=== PATIENT | male | born 1950 | race Caucasian/White ===

== ENCOUNTER → 2021-06-02 | Outpatient (CLI) | payer MEDICARE ==
--- NOTE | 2021-06-03 10:33 | MR ---
EXAMINATION TYPE: MR lumbar spine wo con DATE OF EXAM: 06/02/2021 COMPARISON: NONE HISTORY: Lower back pain x 10 years. TECHNIQUE: Multiplanar, multisequence imaging of the lumbar spine is performed without IV contrast. FINDINGS: Sagittal images of the lumbar spine show vertebral body heights to appear satisfactory. Ali gnment is straightened. Multilevel disc desiccation. Slight grade 1 retrolisthesis L4 on L5. Moderate disc space narrowing with heterogeneous Modic type III endplate changes L4-L5 level and mild to mode rate spurring . Mild disc space narrowing posteriorly L5-S1 level. The conus medullaris is normal in position and signal ending mid L1 level. There is hemangioma involving the posterior left L2 vertebr a sagittal image 6. Axial images show T12-L1, L1-L2, L2-L3, and L3-L4 levels all to appear within normal limits. Axial images at L4-L5 level shows mild to moderate facet degenerative changes. There is broad-based r ight paracentral disc protrusion effacing the lateral recess and anterolateral thecal sac, there is m oderate to severe bilateral neural foraminal narrowing as there is additional broad-based disc bulge. There is effacement on the exiting left L4 nerve sagittal images 4 and 5 and encroachment along the anterior inferior aspect of the right L4 nerve sagittal image 15. Axial images at the L5-S1 levels show mild to moderate facet arthropathy bilaterally. Tiny central di sc protrusion but spinal canal is preserved. Patent bilateral neural foramina. Paraspinal muscle bulk is maintained. There are a few small round T2 hyperintense lesions felt to ref lect benign simple cysts right greater than left noted. IMPRESSION: Straightening of the lumbar spine with degenerative changes lower lumbar levels. Most pro minent findings are noted at L4-L5 level as detailed above.
== END | disposition home or self-care (01) ==
LOC: RADMRIMAIN 20:27
PROVIDERS: ATTEND Orthopaedic Surgery
DX: M51.36 Other intervertebral disc degeneration, lumbar region (principal)
CPT/HCPCS: 72148

== ENCOUNTER 2021-06-11 11:11 | Inpatient (IN) | payer MEDICARE ==
[2021-06-08 15:48] VITALS: BMI 26.2
--- NOTE | 2021-06-11 08:09 | P.HPOR ---
History of Present Illness H&P Date: 06/04/21 Chief Complaint: Low back pain, LE weakness Date of :50 R14 Age: 71 year Height: 5'11" Weight: 185 lbs BMI: 25.80 kg/m2 Occupation: Retired VAS: 6 CHIEF COMPLAINT: Low back pain HISTORY: Xrays No ew xrays taken in office Trauma or injury No Work-Related No Pain description Sharp, increasing Location Medial posterior Activity Modification yes , unable to stand, lay, or ambulate for extended periods of time. Hand Dominance right DOI: Chronic, no injury or trauma. DOS: None. TREATMENTS COMPLETED: 6 weeks of PT completed? Yes How many sessions? 9 Did it help? No Physician directed home exercise completed? No Medications yes List: Gabapentin without relief of his symptoms. Alternative interventions Chiropractic?: No Brace: No Injections Yes (lumbar ARMANDO) How many? 3 Did they help? yes, found short/temporary relief with his symptoms. RFA: No SUBJECTIVE: Patient presents for a pre-operative appointment to review the procedure and address and questions Mr. Chan might have. Since the time of the last appointment he notes that his symptoms have not improved, noting that he is ready and willing to proceed with the planned procedure. Patient alanis any bladder or bowel issues, no perineal numbness and tingling, and presents to the office without the use of any aides. HPI: Mr. Chan last presented to the office on 05/24/2021 for an evaluation of his low back. To review, the patient notes that his low back pain has been ongoing for 8 years with no known injury or trauma to indicate an onset of the pain. Over this time his symptoms have gradually worsened with severity. Due to this, he has seen his PCP (previously Dr. Albert) regarding this issue who then referred him to Dr. Mckeon for further treatment. While with Dr. Mckeon the patient did have three lumbar ARMANDO injections which he found short/temporary relief of his symptoms. Along with this he did complete 9 physical therapy visits with no relief of his symptoms. Regarding his symptoms he notes acute midline lumbar spine, states radicular symptoms. This pain is quite severe and increases with standing, laying, and ambulating for extended in both legs for a periods of time. Due to this his daily functionality is quite limited and he notes that his quality of life has deteriorated substantially. Patient does also report being a fall risk and has fallen several times, associating these falls with his chronic back pain. He feels that he has failed with the conservative treatments tried thus far. Otherwise the patient denies any bladder or bowel issues, no perineal numbness/tingling, and presents without the use of any ambulatory aides. The patients' past social, medical, family, surgical history, as well as review of systems, have been reviewed. Please refer to the Neurosurgery History and Physical form that has been scanned in to our electronic medical record system. Review of Systems 14 points review of systems completed and as stated in HPI, all other systems reviewed are negative. Past Medical History Past Medical History: Cancer, GERD/Reflux, Hypertension, Musculoskeletal Disorder, Osteoarthritis (OA), Prostate Disorder Additional Past Medical History / Comment(s): skin cancer, kidney stones History of Any Multi-Drug Resistant Organisms: None Reported Past Surgical History: Cholecystectomy, Orthopedic Surgery Additional Past Surgical History / Comment(s): ORIF right wrist, hemorrhoidectomy, [place]. cataracts removed Past Anesthesia/Blood Transfusion Reactions: Motion Sickness, Postoperative Nausea & Vomiting (PONV) Additional Past Anesthesia/Blood Transfusion Reaction / Comment(s): severe PONV, had trouble urinating after one of his surgeries Smoking Status: Former smoker - Past Family History Mother Family Medical History: No Reported History Sister(s) Family Medical History: Deep Vein Thrombosis (DVT) Medications and Allergies Home Medications Medication Instructions Recorded Confirmed Type Cefuroxime [Ceftin] 250 mg PO BID PRN 06/08/21 06/08/21 History Cholecalciferol [Vitamin D3 (25 25 mcg PO DAILY 06/08/21 06/08/21 History Mcg = 1000 Iu)] DULoxetine HCL [Cymbalta] 60 mg PO BID 06/08/21 06/08/21 History Finasteride [Proscar] 5 mg PO DAILY 06/08/21 06/08/21 History Gabapentin [Neurontin] 300 mg PO TID 06/08/21 06/08/21 History LORazepam [Ativan] 1 mg PO BID 06/08/21 06/08/21 History LORazepam [Ativan] 2 mg PO HS 06/08/21 06/08/21 History Loratadine [Claritin] 10 mg PO DAILY 06/08/21 06/08/21 History [place]-3/Dha/Epa/Fish Oil [Fish Oil 1 each PO DAILY 06/08/21 06/08/21 History 1,000 mg Softgel] Omeprazole [PriLOSEC] 40 mg PO DAILY 06/08/21 06/08/21 History Psyllium Husk (with Sugar) 4 gm PO DAILY 06/08/21 06/08/21 History [Metamucil Fiber Thin] Tamsulosin [Flomax] 0.4 mg PO DAILY 06/08/21 06/08/21 History amLODIPine BESYLATE 10 mg PO DAILY 06/08/21 06/08/21 History lamoTRIgine [LaMICtal] 150 mg PO DAILY 06/08/21 06/08/21 History lisinopriL [Zestril] 20 mg PO DAILY 06/08/21 06/08/21 History Allergies Allergy/AdvReac Type Severity Reaction Status Date / Time erythromycin base Allergy Nausea & Verified 06/08/21 15:06 Vomiting Physical Examination Osteopathic Statement: *. No significant issues noted on an osteopathic structural exam other than those noted in the History and Physical/Consult. General: Awake, alert, appropriate for age, in no acute distress. HEENT: No unusual neck masses around region of lateral neck triangle, thyroid, supraclavicular groove Heart: Regular rate and rhythm, normal S1, S2 and no murmur/gallop. Lungs: Clear to auscultation bilaterally with no use of accessory muscles. Extremities: Skin warm and dry without acute lesions, coloration, temperature, skin intact, no tenderness or erythema Integument: Hairy patches: Absent Dorsal skin dimples: Absent Cafe au lait spots: Absent Surgical incisions: No Palpation: Please see Pain drawing on Intake sheet for further detail. Midline spinal tenderness: No E6 Paralumbar tenderness: Yes E6 Parathoracic tenderness: No E6 Buttocks tenderness: No E6 Special findings: No POSTURAL and MUSCULO-SKELETAL EVALUATION: Coronal Balance: NEUTRAL Recumbent testing: Patient is able to lay flat on back Sagittal Balance: NEUTRAL Shoulder Profile: LEVEL Pelvic Girdle: LEVEL Neck ROM: UNRESTRICTED Lumbar ROM: RESTRICTED Shoulder ROM: Symmetrical Hip ROM: Symmetrical Knee ROM: Symmetrical Hands: Normal appearance, symmetrical Feet: Normal appearance, Symmetrical VASCULAR STATUS : LEFT RIGHT Wrist Pulses INTACT INTACT Pedal Pulses (Dors. pedis & post.tibialis) INTACT INTACT Color NORMAL NORMAL Edema Absent Absent NEUROLOGIC EXAMINATION: Mental Status:Awake and alert, fully oriented, with normal attention, concentration and memory, and fluent, appropriate speech. Cranial Nerves: I: Olfactory not tested. II: Visual acuity normal, no visual field deficit noted with confrontation. III,IV: Normal pupillary reflexes & intact extraocular movements without nystagmus. V,: Intact symmetrical facial sensation. VII: Intact symmetrical facial motor movement VIII: Hearing intact. IX,X: Intact gag, swallow, & normal voice. XI: Sternocleidomastoid, trapezius function intact. XII: Tongue midline with normal movements. L'hermitte's Sign: Negative / absent Spurling'Sign: Absent bilaterally. Cubital percussion test: Absent bilaterally. Gaby-Tinel sign - Carpal region: Absent bilaterally. Straight Leg Raising: Absent bilaterally. Crossed straight leg raise: negative O8 MOTOR EXAM (0-5/5, N/T) STRENGTH RIGHT LEFT Shoulder Abd (not part of the VAUGHN score) 5 5 Elbow Flexors 5 5 Elbow Extensor 5 5 Wrist Dorsiflexors 5 5 Finger Abductor 5 5 Form Presser 5 5 Hip Flexor (Not part of VAUGHN Motor score) 5 5 Knee Flexor 5 5 Knee Extensor 5 5 Ankle dorsiflexor 4+ 4+ Ankle plantarflexion 4+ 4+ Extensor hallucis 5 5 REFLEXES(0-4/2, NT) RIGHT LEFT Upper Extremities 2 2 Lower Extremities 2 1 Pathological Reflexes RIGHT LEFT Anand's Absent Absent Clonus Absent Absent Babinski Absent Absent # Indicates mechanical impairment Muscle appearance: Symmetrical, without signs of atrophy or dystrophy. Sensory system (0-4, N/T) Test type RU DEEP RL LL Joint-Position 2 2 2 2 Vibration 2 2 2 2 Pain & LT sense 2 2 2 2 Dermatomal Deficit: None None L5 L5-S1 Gait and Functional Evaluation: Ambulatory aids: Independent Romberg's test: Intact bilaterally Toe heel walk / heel-toe walk intact while maintaining satisfactory balance? yes Squatting/straightening w/o assistance to a min of 60 degree knee flexion? yes Single leg stance: intact Trendelenburg sign negative bilaterally Hand and finger dexterity intact bilaterally? yes Disdiadochokinesis examination negative bilaterally? yes Results - This demonstrates L4-5 severe spondylosis with disc space collapse Modic endplate changes bilateral foraminal stenosis facet arthropathy severe causing foraminal stenosis with facet overgrowth. Lateral osteophytes noted both L4 5 and L5-S1. No fractures or dislocations noted. There is flattening of the normal lumbar lordosis through L4-L5 secondary to disc collapse. There are no lesions fractures or dislocations otherwise noted AP pelvis demonstrate congruent level pelvis no fracture MRI reflects this as well with severe spondylosis, modic edplate changes at L4-5 with b/l foraminal stenosis, mild central stenosis and facet ovwergrowth and bogginess. There is disc collapse, segmental kyphosis due to collapse and arthritic changes. Assessment and Plan Assessment: 1. L4-L5 spondylosis 2.L4-L5 bilateral foraminal stenosis 3. L4-L5 central stenosis 4. L5-S1 disc bulge Plan: 1. Based on his clinical findings, imaging, and failure to improve with conservative treatment we did discuss operative intervention to alleviate his ongoing symptoms. This would come in the form of a L4-L5 MIS TLIF. All risks and benefits of the procedure were discussed and the patient expressed understanding. Additionally all questions and concerns were answered and the patient expressed understanding. He would like to proceed with scheduling the surgery. 2. Ordered a CT scan without contrast of the lumbar spine for surgical planning. 3. Given a script for a LSO brace to wear post-operatively. Spine Surgery Risk Review Juan Chan is a 71 y/o white male presenting for evaluation of low back pain. It was my pleasure to have seen and examined Mr. Chan. In our visit today we have had a chance to go over subjective complaints, physical examination findings and treatments including the natural course history without intervention and various interventional options. The patients imaging demonstrates L4-5 severe spondylosis with disc space collapse Modic endplate changes bilateral foraminal stenosis facet arthropathy severe causing foraminal stenosis with facet overgrowth. Lateral osteophytes noted both L4 5 and L5-S1. No fractures or dislocations noted. There is flattening of the normal lumbar lordosis through L4-L5 secondary to disc collapse. There are no lesions fractures or dislocations otherwise noted. On physical exam, Mr. Chan demonstrates bilateral lower extremity weakness, radiculopathy, and neurogenic claudication. I have explained to the patient that as their condition progresses it will cause further neurological deficits and eventual paralysis. Based on the patients imaging, physical exam, and the rapid progression and disabling nature of their symptoms, at this time I recommend surgery in the form or a: L4-L5 MIS TLIF. I discussed the risk and benefits of this procedure at length with Juan. The patient and his agreed to considered pursuing the procedure abovementioned. Prior to surgery, she should follow up with her PCP (Cardio, ID, IM etc) for clearance. Questions were invited and answered, and the patient wishes to proceed as outlined below. Currently, I am recommendin.L4-L5 MIS TLIF 2.Follow up with PCP for surgical clearance 3.Review of surgical risks and benefits as well as an educational packet on the proposed surgical procedure. Risks: All surgical procedures come with inherent risks, including those related to positioning, anesthesia, intraoperative findings, and postoperative complications. It is important to understand that surgery does not come with any guarantee of a successful outcome as complications and adverse events are always possible. The patient was given a handout in office today discussing the surgical procedure and risks associated with the intervention, both of which were discussed with the patient. These risks include but are not limited to the following: * Experiencing same, different or even worse symptoms in back, neck, arms, or legs compared to before surgery. Requiring further surgery or other forms of treatment presently or at some time in the future at same or other levels of the intended spine surgery. On an extreme but fortunately relatively rare basis severe complication such as blindness, stroke, heart attack, temporary and/or permanent nerve injury, paralysis, coma, or may occur, sometimes without known explanation. Surgical complications may include but are not limited to risk of infection, fluid accumulation in the surgical dissection site, including a seroma or hematoma, that requires additional surgery, wound drainage, bleeding, new numbness or weakness, vision changes/loss, spinal fluid leakage, non-healing and/or infected incision, headaches, difficulty or inability to swallow, hoarseness, hemopneumothorax, pneumothorax, impotence, retrograde ejaculation, vaginal dryness; injury to nerves, spinal cord, blood vessels, lymphatics or other vital organs (i.e., bowel injury, injury to the great vessels); heterotopic bone formation; complications related to the hardware such as screws, rods, cages including misplaced hardware, device failure, instrumentation at the wrong spine level, hardware fracture/breakage, or hardware loosening; vertebral failure of the spinal column above or below the newly placed hardware; retained surgical instrumentations or devices and the need for further surgery. * Medical risks of the planned spine surgery include but are not limited to generalized Infections to the whole body or local areas outside of the surgical site (sepsis), heart attack, bleeding, anaphylaxis, meningitis, seizure, epilepsy, hearing loss, burn moyer, laceration of the head or other areas of the body, bruising, hypersensitivity of the skin, bladder over distension; allergic reaction; shoulder injury related to positioning; fat, blood and air clots to other areas of the body like heart, lungs, brain; failure of internal organs such as lungs, kidneys, liver and excessive bleeding. If blood transfusions are necessary, note that transfusions may cause intolerance reactions such as anaphylaxis or other complex reactions. Despite best efforts, the results of spine surgery might not heal in terms of bone, soft tissues such as skin, fascia, ligaments, and joints. Additionally, in order to achieve best possible results, spine surgery may be carried out beyond the initially planned levels and involve decompression, fusion including insertion of hardware at levels other than the original intended area of surgical interest change some portions of the procedure in order to ensure the best possible outcomes. With spine surgery and spinal fusion, there are different off label uses of instrumentation (devices, implants and hardware) as well as biological substances (bone morphogenic proteins, demineralized bone matrix) as well as using extra bone from allograft sources (i.e. cadaver bone) or autograft (iliac crest bone, ribs, or the spine itself). The patient has been given information about these practices and their inherent risks and benefits. [facility] is an educational center that serves as a training facility for neurosurgical and orthopedic spine residents and fellows. Residents are physicians who are completing their surgical intensive training following medical school. They assist in the operating room with direct supervision of the attending surgeons. Winn are surgeons who have completed their training and eligible for board certification. They have opted for an elective year of more specialized training in their field. They assist in the operating room under the supervision of the attending surgeons. Physician assistants are medically trained surgical providers who function in the outpatient, inpatient, and operating room setting under the direct supervision of the attending surgeon. [facility] has multiple operating rooms with single and overlapping rooms running daily. They currently function under the required guidelines as produced by the [facility] Committee with regards to the overlapping rooms and will continue to comply with changes to this policy as they occur. The requirements include and are complied with as follows: (1) the critical portions of the overlapping rooms will not occur at the same time, (2) the attending physician will be physically present during the critical portions of the procedure and immediately available during the entire case, and (3) a back-up attending is designated should the primary attending not be immediately available. The patient has had a chance to review all the listed information, has been given print outs detailing this information, and has had all his/her questions answered to their satisfaction. It was my pleasure to have seen and examined [Patient Name]. In our visit today we have had a chance to go over my understanding of our patient's current condition, the natural course history without intervention and various interventional options. Questions were invited and answered, and the patient wishes to proceed as outlined above. I have seen and examined the patient for 25 minutes and we have spent more than 50% of the time in repeat and detailed counseling about the patient's condition, its natural course history with out and as much as can be predicted with surgery and re-review of various surgical treatment options. In conclusion, Mr. Chan and his requested we proceed with the above suggested surgery and are willing to accept risks and limitations of the suggested surgery as nature of the disease process and our best attempts at treatment for the condition. Thank you again for allowing us to be part of your patient's care. Please don't hesitate to contact me if you have any further questions. Signed and authenticated by: [employer] P:\\\\ppart\\\\Files\\\\[id number]\\[id number].PNG \\d [facility] [address], [address] [place] [address] Follow-up: post-op Patient Education (Informational booklet, instructions, etc) given at today's appointment: Yes .ED:Patient Education: Y Plan at next visit: Review post-operative progress
[~2021-06-11 11:11] MED LIST: ACETAMINOPHEN TAB 500 MG TAB PO PRN; MELOXICAM 7.5 MG TAB PO PRN; MIDAZOLAM 2 MG/2 ML VIAL IV PRN; ONDANSETRON 4 MG/2 ML VIAL IVP PRN; TRANEXAMIC ACID 1,000 MG in SODIUM CHLORIDE 0.9% 100 ML IVPB PRN
[2021-06-11] MEDS: LACTATED RINGERS 1,000 ML IV SCH (12:21)
[2021-06-11] MEDS ORDERED: MIDAZOLAM 2 MG/2 ML VIAL ONE (12:48)
[2021-06-11] MEDS ORDERED: KETAMINE 10 MG/ML 20 ML VIAL ONE (12:48)
[2021-06-11] MEDS ORDERED: SUCCINYLCHOLINE CHLORIDE 100 MG/5 ML SYR IV ONE (12:48)
[2021-06-11] MEDS ORDERED: .fentaNYL (PF) 50 MCG/ML 2 ML AMP ONE (12:48)
[2021-06-11] MEDS ORDERED: SODIUM CHLORIDE 0.9% 100 ML BAG ONE (12:48)
[2021-06-11] MEDS ORDERED: diphenhydrAMINE 50 MG/ML 1 ML VIAL ONE (12:48)
[2021-06-11] MEDS ORDERED: LIDOCAINE 1% INJ 10MG/ML (20 ML MDV) ONE (12:48)
[2021-06-11] MEDS ORDERED: DEXAMETHASONE SOD PHOSPHATE 4 MG/ML 1 ML VIAL ONE (12:48)
[2021-06-11] MEDS ORDERED: PHENYLEPHRINE-0.9% NACL SYG 1,000 MCG/10 ML SYRINGE ONE (12:48)
[2021-06-11] MEDS ORDERED: PROPOFOL 10 MG/ML 20 ML VIAL IV ONE (12:48)
[2021-06-11] MEDS ORDERED: TRANEXAMIC ACID 1,000 MG/10 ML VIAL ONE (12:48)
[2021-06-11] MEDS ORDERED: THROMBIN (BOVINE) 5,000 UNIT VIAL TOPICAL ONE (12:53)
[2021-06-11] MEDS ORDERED: GELATIN SPONGE,ABSORB (LARGE) 1 EACH SPONGE TOPICAL ONE (12:53)
[2021-06-11] MEDS ORDERED: BUPIVACAINE (PF) 0.25% 30 ML VIAL SQ ONE (12:53)
[2021-06-11] MEDS ORDERED: TRANEXAMIC ACID 1,000 MG in SODIUM CHLORIDE 0.9% 100 ML IVPB ONE (13:35)
[2021-06-11] MEDS ORDERED: ceFAZolin 1,000 MG in SODIUM CHLORIDE 0.9% 1,000 ML IRRIGATION ONE (13:57)
[2021-06-11] MEDS ORDERED: LACTATED RINGERS 1,000 ML IV ONE ×2 (14:57)
[2021-06-11] MEDS ORDERED: HYDROmorphone 0.5 MG/0.5 ML SYRINGE IVP PRN (16:32)
[2021-06-11] MEDS ORDERED: HYDROcodone/APAP 5-325MG 1 EACH TAB PO PRN (16:32)
[2021-06-11] MEDS ORDERED: CYCLOBENZAPRINE 5 MG TAB PO PRN (16:32)
[2021-06-11] MEDS ORDERED: SENNOSIDES-DOCUSATE SODIUM 1 EACH TAB PO PRN (16:32)
[2021-06-11] MEDS: HYDROmorphone 0.5 MG/0.5 ML SYRINGE IVP PRN ×4 (16:35→17:15)
--- NOTE | 2021-06-11 16:50 | FL ---
Fluoroscopy History: lumbar spondylosis Lumbar Spondylosis. 1 min 9 secs fl. 2 images saved
--- NOTE | 2021-06-11 17:30 | P.PN ---
Progress Note - Text Progress Note Date: 06/11/21 Brief Post Op: Surgeon: Yon Pre op dx; L4 5 spondylolisthesis with stenosis Post op dx: L4 5 spondylosis with stenosis Procedure: L4-L5 MIST LIF Anesthesia: GETA EBL: 50 Fluids: 1100 UO: 0 Dispo: Stable to PACU Post op Plan: Post operative noncontrasted CT scan Encourage ambulation IS 10x/hr Teds/SCDs Pain control No brace needed for ambulation
[2021-06-11] MEDS: HYDROcodone/APAP 10-325MG 1 EACH TAB PO PRN (19:51)
[2021-06-11] MEDS ORDERED: ONDANSETRON 4 MG in SODIUM CHLORIDE 0.9% 50 ML IVPB ONE (20:42)
[2021-06-11] MEDS ORDERED: ONDANSETRON 4 MG/2 ML VIAL IVP ONE (20:45)
[2021-06-11] MEDS: GABAPENTIN 300 MG CAP PO SCH (21:01)
[2021-06-11] MEDS: HYDROmorphone 1 MG/ML 1 ML SYRINGE IVP PRN (21:07)
[2021-06-11] MEDS ORDERED: TRIMETHOBENZAMIDE 100 MG/ML 2 ML VIAL IM STA (23:11)
--- NOTE | 2021-06-11 23:24 | CT ---
EXAMINATION TYPE: CT lumbar spine wo con DATE OF EXAM: 06/11/2021 COMPARISON: None HISTORY: h/o lumbar sx CT DLP: 1114.6 mGycm Automated exposure control for dose reduction was used. Images obtained from the level of T12-S3 vertebra with no contrast. Lumbar vertebra have normal alignment. There is posterior fusion surgery at L4-5. There is no mari meka fracture. There is disc prosthesis at L4-5. I see no focal bone destruction. There is no lumbar paraspinal mass. There are air bubbles in the soft tissues that appears extradural in the spinal rob l on the right side consistent with recent surgery. There are posterior skin claude. There are soft tissue subcutaneous air bubbles. Metal artifact obscures the spinal canal to some extent at L4-5 leve l. There is right-sided laminectomy defect at L4 level. IMPRESSION: Postsurgical changes at L4-5. There appears to be reduction of the right side L4-5 disc herniation co mpared to MR scan of 06/02/2021.
[2021-06-12] MEDS: HYDROmorphone 1 MG/ML 1 ML SYRINGE IVP PRN ×2 (00:13→03:33)
--- NOTE | 2021-06-12 02:30 | P.CONS ---
History of Present Illness - Reason for Consult Consult date: 06/11/21 - History of Present Illness The patient is 71-year-old male with a PMH of BPH, hypertension, chronic back pain was admitted for an elective lumbar spinal fusion which she underwent earlier today with no immediate postoperative competitions noted. The patient was seen postoperatively on the observation unit. He reported ongoing lower back pain at the surgical site, currently rated at a 6 out of 10. He also reported with 2 episodes of vomiting. He denied abdominal pain, fever, diarrhea. Also denied chest discomfort, shortness of breath, weakness, numbness, tingling. Reported compliance with his medications at home. Review of systems: Pertinent positives and negatives as discussed in HPI, a complete review of systems was performed and all other systems are negative. Physical examination: General: non toxic, no distress, appears at stated age, overweight Derm: no unusual rashes/lesions no unusual ecchymoses, warm, dry Head: atraumatic, normocephalic, symmetric Eyes: EOMI, no lid lag, anicteric sclera, pupils equal round reactive to light ENT: Nose and ears atraumatic, no thrush, no pharyngeal erythema Neck: No thyromegaly, no cervical lymphadenopathy, trachea midline, supple Mouth: no lip lesion, mucus membranes moist Cardiovascular: S1S2 reg, no murmur, positive posterior tibial pulse bilateral, no edema, capillary refill less than 2 seconds Lungs: CTA bilateral, no rhonchi, no rales , no accessory muscle use Abdominal: soft, nontender to palpation, no guarding, no appreciable organomegaly, normal bowel sounds Ext: no gross muscle atrophy, muscle strength 5 out of 5 in all 4 extremities grossly, no contractures, lumbar postsurgical dressings noted clean and dry Neuro: CN II-XI grossly intact, light touch intact all 4 extremities, finger to nose within normal limits, Psych: Alert, oriented, appropriate affect Assessment/plan Nausea, vomiting -Suspected secondary to opiate use -Antiemetics ordered Chronic conditions: Hypertension, BPH -Continue with home meds Status post lumbar spinal fusion -Defer management including pain control to the surgery service We appreciate this opportunity to be involved in this patient's care. We will follow the patient with you. For any further questions, please not hesitate to contact the sound inpatient team. Past Medical History Past Medical History: Cancer, GERD/Reflux, Hypertension, Musculoskeletal Disorder, Osteoarthritis (OA), Prostate Disorder Additional Past Medical History / Comment(s): skin cancer, kidney stones History of Any Multi-Drug Resistant Organisms: None Reported Past Surgical History: Cholecystectomy, Orthopedic Surgery Additional Past Surgical History / Comment(s): ORIF right wrist, hemorrhoidectomy, [place]. cataracts removed, l4-l5 decompression fusion Past Anesthesia/Blood Transfusion Reactions: Motion Sickness, Postoperative Nausea & Vomiting (PONV) Additional Past Anesthesia/Blood Transfusion Reaction / Comm: severe PONV, had trouble urinating after one of his surgeries Past Psychological History: Anxiety, Depression Smoking Status: Former smoker Past Alcohol Use History: None Reported Additional Past Alcohol Use History / Comment(s): quit smoked 40 yrs., didn't smoke very long, only smoked occasionally Past Drug Use History: None Reported - Past Family History Mother Family Medical History: No Reported History Sister(s) Family Medical History: Deep Vein Thrombosis (DVT) Medications and Allergies Home Medications Medication Instructions Recorded Confirmed Type Cefuroxime [Ceftin] 250 mg PO BID PRN 06/08/21 06/11/21 History Cholecalciferol [Vitamin D3 (25 25 mcg PO DAILY 06/08/21 06/11/21 History Mcg = 1000 Iu)] DULoxetine HCL [Cymbalta] 60 mg PO BID 06/08/21 06/11/21 History Finasteride [Proscar] 5 mg PO DAILY 06/08/21 06/11/21 History Gabapentin [Neurontin] 300 mg PO TID 06/08/21 06/11/21 History LORazepam [Ativan] 1 mg PO BID 06/08/21 06/11/21 History LORazepam [Ativan] 2 mg PO HS 06/08/21 06/11/21 History Loratadine [Claritin] 10 mg PO DAILY 06/08/21 06/11/21 History [place]-3/Dha/Epa/Fish Oil [Fish Oil 1 each PO DAILY 06/08/21 06/11/21 History 1,000 mg Softgel] Omeprazole [PriLOSEC] 40 mg PO DAILY 06/08/21 06/11/21 History Psyllium Husk (with Sugar) 4 gm PO DAILY 06/08/21 06/11/21 History [Metamucil Fiber Thin] Tamsulosin [Flomax] 0.4 mg PO DAILY 06/08/21 06/11/21 History lamoTRIgine [LaMICtal] 150 mg PO DAILY 06/08/21 06/11/21 History lisinopriL [Zestril] 20 mg PO DAILY 06/08/21 06/11/21 History Allergies Allergy/AdvReac Type Severity Reaction Status Date / Time erythromycin base Allergy Nausea & Verified 06/11/21 11:41 Vomiting Physical Exam Vitals: Vital Signs Temp Pulse Pulse Resp BP Pulse Ox 06/11/21 17:46 120 H 18 130/67 95 06/11/21 17:31 111 H 16 137/72 95 06/11/21 17:16 112 H 18 142/74 97 06/11/21 17:01 121 H 18 147/78 99 06/11/21 16:46 111 H 16 142/73 92 L 06/11/21 16:35 97.8 F 118 H 18 103/79 100 06/11/21 16:30 97.6 F 105 H 14 146/75 100 06/11/21 12:12 98.1 F 97 20 133/80 100 Intake and Output 06/11/21 06/11/21 06/12/21 14:59 22:59 06:59 Intake Total 1051 700 Output Total 50 Balance 1051 650 Intake: IV 1051 700 Output: Estimated Blood Loss 50 Other: Weight 86.5 kg 86.5 kg
[2021-06-12] MEDS: ONDANSETRON 4 MG/2 ML VIAL IVP PRN ×2 (04:17→16:20)
--- NOTE | 2021-06-12 08:26 | P.GSCN ---
History of Present Illness Consult date: 06/12/21 Reason for Consult: Urinary retention History of present illness: Mr Chan is 71 yo male that underwent L4-L5 MIS TLIF yesterday. He's been unable to void since surgery, a Randolph catheter was not placed during surgery. He does have history of BPH, he follows up with Dr. Mohan for his BPH. He is currently on Flomax. At baseline does have obstructive urinary symptoms. Has history of postoperative urinary retention in the past. Denies any gross hematuria or dysuria. Attempted Randolph placement by nurses was unsuccessful Review of Systems - Constitutional Denies fever, Denies weight loss - EENT Ears, nose, mouth and throat: Denies dysphagia - Respiratory Denies cough, Denies 7 - Gastrointestinal Reports abdominal pain, Reports nausea, Reports vomiting - Genitourinary Reports urinary retention, Denies dysuria, Denies flank pain, Denies hematuria - Integumentary Denies rash, Denies unusual bruising - Neurological Denies headaches, Denies syncope Past Medical History Past Medical History: Cancer, GERD/Reflux, Hypertension, Musculoskeletal Disorder, Osteoarthritis (OA), Prostate Disorder Additional Past Medical History / Comment(s): skin cancer, kidney stones History of Any Multi-Drug Resistant Organisms: None Reported Past Surgical History: Cholecystectomy, Orthopedic Surgery Additional Past Surgical History / Comment(s): ORIF right wrist, hemorrhoidectomy, kodka. cataracts removed, l4-l5 decompression fusion Past Anesthesia/Blood Transfusion Reactions: Motion Sickness, Postoperative Nausea & Vomiting (PONV) Additional Past Anesthesia/Blood Transfusion Reaction / Comm: severe PONV, had trouble urinating after one of his surgeries Past Psychological History: Anxiety, Depression Smoking Status: Former smoker Past Alcohol Use History: None Reported Additional Past Alcohol Use History / Comment(s): quit smoked 40 yrs., didn't smoke very long, only smoked occasionally Past Drug Use History: None Reported - Past Family History Mother Family Medical History: No Reported History Sister(s) Family Medical History: Deep Vein Thrombosis (DVT) Medications and Allergies Home Medications Medication Instructions Recorded Confirmed Type Cefuroxime [Ceftin] 250 mg PO BID PRN 06/08/21 06/11/21 History Cholecalciferol [Vitamin D3 (25 25 mcg PO DAILY 06/08/21 06/11/21 History Mcg = 1000 Iu)] DULoxetine HCL [Cymbalta] 60 mg PO BID 06/08/21 06/11/21 History Finasteride [Proscar] 5 mg PO DAILY 06/08/21 06/11/21 History Gabapentin [Neurontin] 300 mg PO TID 06/08/21 06/11/21 History LORazepam [Ativan] 1 mg PO BID 06/08/21 06/11/21 History LORazepam [Ativan] 2 mg PO HS 06/08/21 06/11/21 History Loratadine [Claritin] 10 mg PO DAILY 06/08/21 06/11/21 History [place]-3/Dha/Epa/Fish Oil [Fish Oil 1 each PO DAILY 06/08/21 06/11/21 History 1,000 mg Softgel] Omeprazole [PriLOSEC] 40 mg PO DAILY 06/08/21 06/11/21 History Psyllium Husk (with Sugar) 4 gm PO DAILY 06/08/21 06/11/21 History [Metamucil Fiber Thin] Tamsulosin [Flomax] 0.4 mg PO DAILY 06/08/21 06/11/21 History lamoTRIgine [LaMICtal] 150 mg PO DAILY 06/08/21 06/11/21 History lisinopriL [Zestril] 20 mg PO DAILY 06/08/21 06/11/21 History Allergies Allergy/AdvReac Type Severity Reaction Status Date / Time erythromycin base Allergy Nausea & Verified 06/11/21 11:41 Vomiting Surgical - Exam Vital Signs Temp Pulse Resp BP Pulse Ox 98.1 F 97 20 133/80 100 06/11/21 12:12 06/11/21 12:12 06/11/21 12:12 06/11/21 12:12 06/11/21 12:12 - General no distress, moderate pain - Eyes PERRL, normal ocular movement - ENT normal nares, normal mucosa - Respiratory normal expansion, normal respiratory effort - Abdomen Abdomen: soft, non tender - Genitourinary Uncircumcised phallus, normal meatus - Psychiatric oriented to time, oriented to person, oriented to place Assessment and Plan Assessment: This is a 71-year-old male postop day #1 S/P L4-L5 MIS TLIF, has history of BPH, and postoperative urinary retention. -16 Randolph catheter was placed, with return of clear yellow urine -Continue Flomax -Can be discharged home with the Randolph catheter, can follow-up in 5-7 days with his urologist Dr. Mohan
[2021-06-12] MEDS: LACTATED RINGERS 1,000 ML IV SCH (09:17)
[2021-06-12] MEDS: GABAPENTIN 300 MG CAP PO SCH ×2 (09:18→20:30)
[2021-06-12] MEDS ORDERED: VANCOMYCIN IV PER PHARMACY 1 EACH MISC MISCELLANE PRN (09:25)
[2021-06-12] MEDS: TAMSULOSIN 0.4 MG CAP.ER.24H PO SCH (09:30)
[2021-06-12 09:46] LABS: Basophils % (A) 0 %; Eosinophils % (A) 0 %; HGB 12.6 gm/dL (13.0-17.5); Lymphocytes # (A) 0.9 k/uL (1.0-4.8); Lymphocytes % (A) 6 %; MCH 30.1 pg (25.0-35.0); MCHC 33.1 g/dL (31.0-37.0); Mean Platelet Volume 7.5; Monocytes # (A) 0.8 k/uL (0-1.0); Monocytes % (A) 6 %; Neutrophils # (A) 13.2 k/uL (1.3-7.7); Neutrophils % (A) 88 %; Platelet Count 277 k/uL (150-450); RBC 4.17 m/uL (4.30-5.90); RDW 12.5 % (11.5-15.5)
[2021-06-12] MEDS ORDERED: VANCOMYCIN 1,750 MG in SODIUM CHLORIDE 0.9% 500 ML 500 ML IVPB ONE (10:00)
[2021-06-12] MEDS: HYDROcodone/APAP 10-325MG 1 EACH TAB PO PRN ×2 (10:11→16:14)
[2021-06-12] MEDS: METOCLOPRAMIDE 5 MG/ML 2 ML VIAL IVP SCH ×2 (10:12→17:21)
[2021-06-12] MEDS: diphenhydrAMINE 50 MG/ML 1 ML VIAL IVP PRN ×2 (10:12→22:21)
--- NOTE | 2021-06-12 10:56 | P.PN ---
Subjective Progress Note Date: 06/12/21 Pt s/e. He is doing well except for NV overnight. He states he gets car sick , airsick etc very easily. He is otherwise doing very well. States minimal to no back pain at this time. He has been up at bedside and taken a few steps. States his legs feel good and no pain. He denies any weakness, numbness/tingling at this time. Denies any other issues. States no f/c/sob/cp at this time Objective - Vital Signs Vital signs: Vital Signs Temp 97.5 F L 06/12/21 09:17 Pulse 99 06/12/21 09:17 Resp 18 06/12/21 09:17 BP 157/80 06/12/21 09:17 Pulse Ox 95 06/12/21 02:00 Intake & Output 06/11/21 06/12/21 06/12/21 18:59 06:59 18:59 Intake Total 1751 600 Output Total 50 0 Balance 1701 600 Weight 86.5 kg Intake: IV 1751 Oral 600 Output: Urine 0 Estimated Blood Loss 50 Other: Voiding Method Indwelling Catheter - Exam Patient is alert and oriented 3 appears well-nourished well-hydrated is in no acute distress. They does not appear septic. On exam the patient has no tenderness to palpation of her thoracic or lumbar spine. There is no edema or ballottement sign. Lower extremities with 5 out of 5 strength in all major muscle groups Upper extremities show 5/5 strength in all major muscle groups. There is FROM that is painless of the b/l UE and LE in all major joints. They are intact to light touch sensation in L2 to S1 nerve distribution. Patient has palpable dorsalis pedis was posterior tibial pulses. Compartments are soft and compressible. Patient shows a negative Homans, Anand's, negative Babinski's negative clonus bilaterally. negative straight leg raise bilaterally. No tensioning signs. Cranial nerves II through XII are grossly intact. Overall alignment is well-maintained in the sagittal coronal planes. incisions are clean and dry at this time minimal tenderness to palpation around the incisions. - Labs CBC & Chem 7: 06/12/21 09:15 Labs: Abnormal Lab Results - Last 24 Hours (Table) 06/12/21 Range/Units 09:15 WBC 15.0 H (3.8-10.6) k/uL RBC 4.17 L (4.30-5.90) m/uL Hgb 12.6 L (13.0-17.5) gm/dL Hct 38.0 L (39.0-53.0) % Neutrophils # 13.2 H (1.3-7.7) k/uL Lymphocytes # 0.9 L (1.0-4.8) k/uL Assessment and Plan Assessment: 1. L4-L5 spondylosis 2.L4-L5 bilateral foraminal stenosis 3. L4-L5 central stenosis 4. L5-S1 disc bulge Plan: -Appreciate road consultant and team management. -Activity: Ambulate QID, OOB all meals, up and about, limit lifting bending twisting to less than 5 lbs. Use walker or cane if needed for stability. -Daily PT/OT, increase ambulation strength and balance. -[Brace when up and about, not needed in bed or chair] -Pain control: [Adequate at this time] -Meds: [reviewed] -GI ppx: senna, Miralax -DC leos when Recommended by urology -DVT PPX: early ambulation SCDs KIRSTIN hose -Hygiene: Shower today. Maintain dressing clean and dry. Meticulous cleaning after BMs away from incision site -Encourage IS 10x/hr -Dispo: home with home healthcare 1-2 days
[2021-06-12 10:58] LABS: African American GFR (CKD) >90 (>60 ml/min/1.73 sqM); Non-African American GFR(CKD) >90 (>60 ml/min/1.73 sqM)
--- NOTE | 2021-06-12 11:16 | P.PN ---
Subjective Progress Note Date: 06/12/21 Patient is status post lumbar spinal fusion. He denies any lower extremity weakness. Patient had some urinary retention this morning and Randolph catheter was placed by urology service. Patient states that his pain is currently controlled with current pain regimen. He states that his nausea is also control with the current antiemetics. Per nurse patient worked with physical therapy and did well. 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 Psych - Calm and cooperative - Labs CBC & Chem 7: 06/12/21 09:15 06/12/21 09:15 Labs: Abnormal Lab Results - Last 24 Hours (Table) 06/12/21 Range/Units 09:15 WBC 15.0 H (3.8-10.6) k/uL RBC 4.17 L (4.30-5.90) m/uL Hgb 12.6 L (13.0-17.5) gm/dL Hct 38.0 L (39.0-53.0) % Neutrophils # 13.2 H (1.3-7.7) k/uL Lymphocytes # 0.9 L (1.0-4.8) k/uL Assessment and Plan Assessment: Nausea, vomiting -Suspected secondary to anesthesia and opioid use -Control and antiemetics Chronic conditions: Hypertension, BPH -Continue with home meds Urinary retention -Randolph catheter placed by urology -Patient started on Flomax Status post lumbar spinal fusion -Defer management including pain control to the surgery service Thank you for the consult. We will continue to follow along with you.
[2021-06-12] MEDS ORDERED: LORazepam 1 MG TAB PO PRN (15:25)
[2021-06-12] MEDS ORDERED: NON FORMULARY DRUG (Omega-3/Dha/Epa/Fish Oil [Fish Oil 1,000 Mg Softgel] 1 EACH Capsule) PO SCH (15:30)
[2021-06-12] MEDS: lamoTRIgine 100 MG TAB PO SCH (16:15)
[2021-06-12] MEDS: lisinopriL 10 MG TAB PO SCH (16:15)
[2021-06-12] MEDS: CHOLECALCIFEROL 25 MCG (1000 IU) TABLET PO SCH (16:15)
[2021-06-12] MEDS: FINASTERIDE 5 MG TAB PO SCH (16:15)
[2021-06-12] MEDS: LORATADINE 10 MG TAB PO SCH (16:16)
[2021-06-12] MEDS: PANTOPRAZOLE 40 MG TABLET PO SCH (16:16)
[2021-06-12] MEDS: DULoxetine HCL 60 MG CAPSULE.DR PO SCH (20:30)
[2021-06-13] MEDS: VANCOMYCIN 1,500 MG in SODIUM CHLORIDE 0.9% 250 ML IVPB SCH ×3 (00:17→23:24)
[2021-06-13] MEDS: METOCLOPRAMIDE 5 MG/ML 2 ML VIAL IVP SCH ×5 (00:18→23:24)
[2021-06-13] MEDS: LACTATED RINGERS 1,000 ML IV SCH (00:18)
[2021-06-13] MEDS: HYDROcodone/APAP 10-325MG 1 EACH TAB PO PRN ×4 (04:46→23:23)
[2021-06-13] MEDS: ONDANSETRON 4 MG/2 ML VIAL IVP PRN (04:47)
[2021-06-13] MEDS: GABAPENTIN 300 MG CAP PO SCH ×2 (05:30→20:11)
[2021-06-13 06:26] LABS: African American GFR (CKD) >90 (>60 ml/min/1.73 sqM); Non-African American GFR(CKD) >90 (>60 ml/min/1.73 sqM)
[2021-06-13] MEDS: lamoTRIgine 100 MG TAB PO SCH (09:03)
[2021-06-13] MEDS: PANTOPRAZOLE 40 MG TABLET PO SCH (09:03)
[2021-06-13] MEDS: LORATADINE 10 MG TAB PO SCH (09:03)
[2021-06-13] MEDS: CHOLECALCIFEROL 25 MCG (1000 IU) TABLET PO SCH (09:03)
[2021-06-13] MEDS: lisinopriL 10 MG TAB PO SCH (09:03)
[2021-06-13] MEDS: FINASTERIDE 5 MG TAB PO SCH (09:04)
[2021-06-13] MEDS: TAMSULOSIN 0.4 MG CAP.ER.24H PO SCH (09:04)
[2021-06-13] MEDS: DULoxetine HCL 60 MG CAPSULE.DR PO SCH ×2 (09:04→20:11)
--- NOTE | 2021-06-13 10:39 | P.PN ---
Subjective Progress Note Date: 06/13/21 Patient denies any nausea vomiting. Patient denies any acute complaints. He denies any lower extremity weakness or decreased sensation. Patient states that he has a urologist close to [facility] where he lives and he said that he will follow-up with his own neurologist regarding the urinary retention. Patient states that he worked with physical therapy yesterday however only took a couple steps. Per physical therapy note due to patient's nausea they could not work much with them. Patient stated that he is looking forward to working with physical therapy today. Objective - Vital Signs Vital signs: Vital Signs Temp 98.2 F 06/13/21 08:18 Pulse 107 H 06/13/21 08:18 Resp 18 06/13/21 08:18 BP 127/71 06/13/21 08:18 Pulse Ox 99 06/13/21 08:18 Intake & Output 06/12/21 06/13/21 06/13/21 18:59 06:59 18:59 Intake Total 600 920 Output Total 1500 675 Balance -900 245 Intake: Intake, IV Titration 600 330 Amount Lactated Ringers 1,000 ml 100 80 @ 20 mls/hr IV .Q24H [facility] Rx#:[id number] Vancomycin 1,500 mg In 250 Sodium Chloride 0.9% 250 ml @ 125 mls/hr IVPB Q12H [facility] Rx#:[id number] Vancomycin 1,750 mg In 500 Sodium Chloride 0.9% 500 ml 500 ml @ 167 mls/hr IVPB ONCE ONE Rx#: [id number] Oral 590 Output: Urine 1500 675 Uretheral (Randolph) 675 Other: Voiding Method Indwelling Catheter Indwelling Catheter - Exam General examination - Alert and Oriented 3 in NAD Heart - + S1S2 no murmurs Lungs - Clear to auscultation Abdomen soft NT ND +ve BS Extremities - No edema 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 Thank you for the consult. We will continue to follow along with you.
--- NOTE | 2021-06-13 10:55 | P.PN ---
Subjective Progress Note Date: 06/13/21 Principal diagnosis: 1. L4-L5 spondylosis 2.L4-L5 bilateral foraminal stenosis 3. L4-L5 central stenosis 4. L5-S1 disc bulge Patient was seen at bedside this morning resting comfortably lying semirecumbent bed. Patient states he did sit up at bedside earlier and had breakfast. Patient says he did feel okay while he did sit up, but says he did have a little pain. Patient says he would like to get up later today to sit in chair. Patient denies chest pain, fever, shortness breath, nausea, vomiting, change in vision, loss of bowel/bladder control. Objective - Vital Signs Vital signs: Vital Signs Temp 98.2 F 06/13/21 08:18 Pulse 107 H 06/13/21 08:18 Resp 18 06/13/21 08:18 BP 127/71 06/13/21 08:18 Pulse Ox 99 06/13/21 08:18 Intake & Output 06/12/21 06/13/21 06/13/21 18:59 06:59 18:59 Intake Total 600 920 Output Total 1500 675 Balance -900 245 Intake: Intake, IV Titration 600 330 Amount Lactated Ringers 1,000 ml 100 80 @ 20 mls/hr IV .Q24H [facility] Rx#:[id number] Vancomycin 1,500 mg In 250 Sodium Chloride 0.9% 250 ml @ 125 mls/hr IVPB Q12H [facility] Rx#:[id number] Vancomycin 1,750 mg In 500 Sodium Chloride 0.9% 500 ml 500 ml @ 167 mls/hr IVPB ONCE ONE Rx#: [id number] Oral 590 Output: Urine 1500 675 Uretheral (Randolph) 675 Other: Voiding Method Indwelling Catheter Indwelling Catheter - Exam Focused: Spine Incisions are clean, dry, intact. Negative for any fluctuance/purulence. Negative for any significant ecchymosis, erythema. [place] are well aligned in good place. Sensation is equal, symmetric, bilaterally intact throughout. There is minimal tenderness to palpation along the incisions. Nontender to palpation throughout rest of exam. Patient has good range of motion bilateral upper extremities. Patient is able to wiggle toes bilaterally in lower extremities. Patient also flex and extend at knees. Capillary refill is under 3 seconds bilaterally and digits upper extremities. Radial pulses intact, 2+ bilaterally. Negative Homans bilaterally. - Labs CBC & Chem 7: 06/12/21 09:15 06/13/21 05:38 Assessment and Plan Assessment: 1. L4-L5 spondylosis 2.L4-L5 bilateral foraminal stenosis 3. L4-L5 central stenosis 4. L5-S1 disc bulge - Post-op Day #2 s/p L4-L5 MIS TLIF Plan: 1. L4-L5 spondylosis; L4-L5 bilateral foraminal stenosis; L4-L5 central stenosis; L5-S1 disc bulge - surgery performed 06/11/2021 - L4-L5 MIS TLIF. Patient stable at bedside this morning. Plan discharge home tomorrow. 2. Appreciate medical management 3. Appreciate urology management 4. Pain management - [place]; gabapentin; Flexeril 5. DVT prophylaxis - mechanical 6. GI prophylaxis - senna; Protonix 7. PT/OT - weightbearing as tolerated with walker and brace when up and about 8. Discharge planning - plan for discharge home tomorrow, 06/14/2021 Time with Patient: Less than 30
[2021-06-13] MEDS: diphenhydrAMINE 50 MG/ML 1 ML VIAL IVP PRN (10:56)
[2021-06-14] MEDS: HYDROcodone/APAP 10-325MG 1 EACH TAB PO PRN ×2 (05:29→12:12)
[2021-06-14] MEDS: METOCLOPRAMIDE 5 MG/ML 2 ML VIAL IVP SCH ×2 (05:29→12:12)
[2021-06-14] MEDS: GABAPENTIN 300 MG CAP PO SCH (05:29)
[2021-06-14] MEDS: LACTATED RINGERS 1,000 ML IV SCH (06:12)
[2021-06-14] MEDS: TAMSULOSIN 0.4 MG CAP.ER.24H PO SCH (07:32)
[2021-06-14] MEDS: PANTOPRAZOLE 40 MG TABLET PO SCH (07:32)
[2021-06-14] MEDS: DULoxetine HCL 60 MG CAPSULE.DR PO SCH (07:32)
[2021-06-14] MEDS: lamoTRIgine 100 MG TAB PO SCH (07:32)
[2021-06-14] MEDS: CHOLECALCIFEROL 25 MCG (1000 IU) TABLET PO SCH (07:32)
[2021-06-14] MEDS: FINASTERIDE 5 MG TAB PO SCH (07:32)
[2021-06-14] MEDS: LORATADINE 10 MG TAB PO SCH (07:33)
[2021-06-14] MEDS: lisinopriL 10 MG TAB PO SCH (07:33)
[2021-06-14 08:30] LABS: Basophils % (A) 1 %; Eosinophils # (A) 0.1 k/uL (0-0.7); Eosinophils % (A) 1 %; HCT 34.5 % (39.0-53.0); HGB 11.8 gm/dL (13.0-17.5); Lymphocytes # (A) 1.1 k/uL (1.0-4.8); Lymphocytes % (A) 16 %; MCH 31.2 pg (25.0-35.0); MCHC 34.3 g/dL (31.0-37.0); Mean Platelet Volume 7.4; Monocytes # (A) 0.5 k/uL (0-1.0); Monocytes % (A) 7 %; Neutrophils # (A) 5.2 k/uL (1.3-7.7); Neutrophils % (A) 75 %; Platelet Count 207 k/uL (150-450); RDW 12.4 % (11.5-15.5); WBC 6.9 k/uL (3.8-10.6)
--- NOTE | 2021-06-14 10:08 | P.PN ---
Subjective Progress Note Date: 06/14/21 Patient states that yesterday he walked in his room and also sat in the chair without any issues. Patient denies any nausea vomiting. He states that he made an appointment with his urologist for this Monday. Patient is hoping that he will be discharged home today. Objective - Vital Signs Vital signs: Vital Signs Temp 97.9 F 06/14/21 07:29 Pulse 104 H 06/14/21 07:29 Resp 18 06/14/21 01:01 BP 127/69 06/14/21 07:29 Pulse Ox 96 06/14/21 07:29 Intake & Output 06/13/21 06/14/21 06/14/21 18:59 06:59 18:59 Intake Total 2980 250 Output Total 4200 400 Balance -1220 -150 Intake: Intake, IV Titration 250 250 Amount Vancomycin 1,500 mg In 250 250 Sodium Chloride 0.9% 250 ml @ 125 mls/hr IVPB Q12H [facility] Rx#:[id number] Oral 2730 Output: Urine 4200 400 Uretheral (Randolph) 400 Other: Voiding Method Indwelling Catheter Indwelling Catheter Indwelling Catheter # Voids 1 - Exam General examination - Alert and Oriented 3 in NAD Heart - + S1S2 no murmurs Lungs - Clear to auscultation Abdomen soft NT ND +ve BS Extremities - No 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 Status post lumbar spinal fusion -Defer management including pain control to the surgery service Patient is stable for discharge from a medical standpoint. Thank you for the consult. We will continue to follow along with you.
[2021-06-14] MEDS ORDERED: VANCOMYCIN TROUGH DUE 1 EACH MISC MISCELLANE ONE (11:00)
[2021-06-14] MEDS: VANCOMYCIN 1,500 MG in SODIUM CHLORIDE 0.9% 250 ML IVPB SCH (12:13)
[2021-06-14 12:14] LABS: African American GFR (CKD) >90 (>60 ml/min/1.73 sqM); Non-African American GFR(CKD) >90 (>60 ml/min/1.73 sqM)
--- NOTE | 2021-06-14 12:52 | P.PN ---
Subjective Progress Note Date: 06/14/21 Principal diagnosis: 1. L4-L5 spondylosis 2.L4-L5 bilateral foraminal stenosis 3. L4-L5 central stenosis 4. L5-S1 disc bulge Patient was seen at bedside this morning resting comfortably standing with walker and at bedside. Patient states he is feeling better today vs over the past couple days. He says he has been able to eat and use the bathroom. Dylan hinkle says he is having some easing of symptoms in his legs especially left lower leg. he says he is having minimal pain to lower back. Patient says he is ready to go home. Patient denies chest pain, fever, shortness breath, nausea, vomiting, change in vision, loss of bowel/bladder control. Objective - Vital Signs Vital signs: Vital Signs Temp 97.9 F 06/14/21 07:29 Pulse 104 H 06/14/21 07:29 Resp 18 06/14/21 01:01 BP 127/69 06/14/21 07:29 Pulse Ox 96 06/14/21 07:29 Intake & Output 06/13/21 06/14/21 06/14/21 18:59 06:59 18:59 Intake Total 2980 250 Output Total 4200 400 950 Balance -1220 -150 -950 Intake: Intake, IV Titration 250 250 Amount Vancomycin 1,500 mg In 250 250 Sodium Chloride 0.9% 250 ml @ 125 mls/hr IVPB Q12H [facility] Rx#:[id number] Oral 2730 Output: Urine 4200 400 950 Uretheral ([place]) 400 Other: Voiding Method Indwelling Catheter Indwelling Catheter Indwelling Catheter # Voids 1 - Exam Focused: Spine Incisions are clean, dry, intact. Negative for any fluctuance/purulence. Negative for any significant ecchymosis, erythema. Abrams are well aligned in good place. Sensation is equal, symmetric, bilaterally intact throughout. There is minimal tenderness to palpation along the incisions. Nontender to palpation throughout rest of exam. Patient has good range of motion bilateral upper extremities. Patient is able to wiggle toes bilaterally in lower extremities. Patient also flex and extend at knees. Capillary refill is under 3 seconds bilaterally and digits upper extremities. Radial pulses intact, 2+ bilaterally. Negative Homans bilaterally. - Labs CBC & Chem 7: 06/14/21 08:08 12/06/21 11:26 Labs: Abnormal Lab Results - Last 24 Hours (Table) 06/14/21 Range/Units 08:08 RBC 3.80 L (4.30-5.90) m/uL Hgb 11.8 L (13.0-17.5) gm/dL Hct 34.5 L (39.0-53.0) % Assessment and Plan Assessment: 1. L4-L5 spondylosis 2.L4-L5 bilateral foraminal stenosis 3. L4-L5 central stenosis 4. L5-S1 disc bulge - Post-op Day #3 s/p L4-L5 MIS TLIF Plan: 1. L4-L5 spondylosis; L4-L5 bilateral foraminal stenosis; L4-L5 central stenosis; L5-S1 disc bulge - surgery performed 06/11/2021 - L4-L5 MIS TLIF. Patient stable at bedside this morning. Plan discharge home today 2. Appreciate medical management 3. Appreciate urology management 4. Pain management - [place]; gabapentin; Flexeril 5. DVT prophylaxis - mechanical 6. GI prophylaxis - senna; Protonix 7. PT/OT - weightbearing as tolerated with walker and brace when up and about 8. Discharge planning - plan for discharge home today, 06/14/2021 Time with Patient: Less than 30
--- NOTE | 2021-06-14 13:04 | P.DS ---
Providers Date of admission: 06/12/21 17:21 Expected date of discharge: 06/14/21 Attending physician: Nikolai Marvin DO Consults: 06/11/21 16:37 Consult Physician Routine Consulting Provider: Kayli Alas Consult Reason/Comments: Medical Management s/p L4-L5 Decompression and Fusion Do you want consulting provider notified?: Yes 06/11/21 18:00 Consult Physician Urgent Consulting Provider: Arnold Macias Consult Reason/Comments: urology management - unable to place leos/catheter Do you want consulting provider notified?: Yes Primary care physician: Jesika Peters DO Hospital Course: Date of admission: 06/11/2021 Date of discharge: 06/14/2021 Admission diagnosis: 1. L4-L5 spondylosis 2.L4-L5 bilateral foraminal stenosis 3. L4-L5 central stenosis 4. L5-S1 disc bulge Discharge diagnosis: Same Attending physician: Dr. Marvin Surgical procedures: L4-L5 MIS TLIF Brief history: Patient is a 71-year-old male with a history of L4-L5 spinal; L4- L5 bilateral foraminotomy foraminal stenosis; L4-L5 central stenosis; L5-S1 disc bulge. At this point patient has failed conservative treatment measures and has opted to proceed with a elective L4-L5 MIS TLIF. Hospital course: Details of patient's surgery can be found in operative report. Patient tolerated the procedure well and was subsequently transported to orthopedic floor. Patient's orthopeidc and medical care was provided daily. Patient had daily laboratory tests performed for evaluation of overall blood counts. Patient had daily physical therapy to include strengthening range of motion as well as education with walker ambulation. Patient was noted to have a relatively uneventful postoperative course. Patient reported satisfactory pain control with oral pain medications by postoperative day 3. Patient showed satisfactory progress with physical therapy. Patient moved steadily through the program and had no difficulty meeting the goals by postoperative day 3. Given patient's otherwise satisfactory course and having met physical therapy goals, plan is to discharge patient home on postoperative day 3. Discharge condition/disposition: Patient will be discharged home in stable condition. Discharge medications: Instructions are given on resumption of patient's normal daily medications per primary care recommendation, in addition patient will be prescribed Tsaile; Flexeril; gabapentin; Colace. Spine Discharge and Recovery Instructions Date of Surgery: 06/11/2021 Diagnosis: L4-L5 spinal; L4-L5 bilateral foraminotomy foraminal stenosis; L4-L5 central stenosis; L5-S1 disc bulge Procedure: L4-L5 MIS TLIF Medications: See medication list All medication refills should be obtained through your primary care doctor or your clinic spine surgeon. Please discuss prescription refills at your follow up appointment. Do not call the hospital for medication refills. Dressing: Leave your dressing in place for a total of 5 days post operatively. Then you may remove your dressing and leave open to air. Keep the area clean and if not able to keep area clean, then cover with sterile gauze and tape. Showering: You may shower 3 days after your procedure allowing soap and water to run over incision. Do not scrub. Do not soak. Blot dry. Follow up: Please confirm a follow up appointment with your surgeon 3 weeks post operatively. Please make an appointment to follow up with your PCP in 1-2 weeks after surgery for evaluation 3 phase, 3-week plan POST OP WEEKS 1-3 1. Lifting/carrying/pushing/pulling limited to less than 5 pounds. 2. Do not sit for longer than 15 minutes at one time. Get up and walk around. Prolonged sitting is NOT advised. If you lay down, see if you can tolerate laying down on you front (belly side) 3. Walk for periods of 15 minutes = 1 mile but no longer; do it multiple times times each day. 4. Ice your low back after activity. POST OP WEEKS 3-6 1. Lifting limited to less than 20 pounds. 2. Do not sit for longer than 30 minutes at a time. Frequently change positions. Use a sit-to stand workstation or take frequent breaks from sitting if you have returned to work. 3. Walk for 30 minutes each day. If possible, do these three or more times a day POST OP WEEKS 6+ At your 6-week appointment we will give you a physical therapy referral to focus on a core stabilization and strengthening program. You should also work on leg & buttock strengthening, hamstring & quadriceps stretching, and continue a low impact aerobic activity program such as swimming, walking, or riding a stationary bicycle. During the initial 6 weeks after your surgery, you are at the highest risk of re-injuring your spine. You should generally avoid BLTs (bending, lifting and twisting combination motions) and follow the above guidelines to reduce the chance of reinjury. You can anticipate post op appointments in our office at approximately 3 weeks and 6 weeks after your surgery. INCISION CARE: If your incision is not draining you do NOT need to cover it with a dressing. Keep your incision clean, dry and intact. In most cases, we apply skin glue, claude or sutures to the incision at the time of surgery. This will be like a crust or have the appearance of a scab and will fall off in time on its own. The stitches or claude need to be removed at 3 weeks post op appointment. You may begin to shower 3 days after surgery (this allows the glue to pozo well). However, please avoid scrubbing the incision site or peeling off any of the skin glue. This will ensure optimal healing of your incision. Also, during this time avoid soaking the incision area in water - this includes swimming pools, hot tubs or baths. No ointments, lotions or oils on the incision until your surgeon allows. Leave claude, sutures or glue in place. Neurological dysfunction that comes on suddenly can also be a sign of a stroke. Below some common symptoms of a stroke are listed: B - balance difficulty such as sudden onset walking or leaning to one side - NEW E - eye problem such as sudden double vision or trouble seeing on one side - NEW F - Facial weakness or numbness on one side - NEW A - Arm or leg weakness or numbness on one side - NEW S - Slurred speech or difficulty with word finding - NEW T - Time is BRAIN! Call 911 as soon as you recognize these symptoms Diet: Consume a regular diet rich in vegetables and lean protein such as chicken or fish. You should consume in a ratio of approximately 20% fats|40% carbohydrates|40%protein. Vegetables, sweet potatoes, brown rice or quinoa are examples of good carbohydrates. Chips, white bread, cookies and sweets/sugar are examples of bad carbohydrates. Limit your bad carbs, go wild with good carbs. "Life's Simple 7" Guidelines as per [employer] These will help you reclaim your life after surgery and chief engineer's helper in your recovery, keeping in mind your restrictions. (1) Get Active. Physical activity can help people lose weight, control high blood pressure and cholesterol, feel emotionally better, and sleep better. (2) Control Cholesterol. Avoid a diet high in saturated fat, trans fat, & cholesterol. Limit whole milk & cream, ice cream, butter, egg yolks, processed meats (like sausage and hot dogs), and fatty meats. Choose healthy foods that are low in saturated fat, trans fat and cholesterol which include: Fruits and vegetables, fiber rich grain products (like whole grain pasta and brown rice), lean meat such as chicken, fish, nuts, seeds, and legumes. (3) Eat Better. Eat small portions. Shop at the grocery with a list and do not stray from it. Tips for a healthy diet include: Limit sodium intake to less than 1500mg daily, avoid prepackaged, processed, and fast foods, choose a diet rich in fruits, vegetables, and whole grain, high fiber foods, and limit saturated & cholesterol in your diet. (4) Manage Blood Pressure. If you have high blood pressure, you should have a cuff at home so that you can check your blood pressure regularly. Be sure you have a good cuff. An arm one is generally better than a wrist one. Bring the cuff to a doctor's appointment to validate that the measurements that your cuff are taking are accurate. Take your blood pressure twice daily when you are sitting down and relaxing. Record the numbers in a log and bring this log with you to your doctors' appointments. (5) Lose Weight if your BMI is above 25. A healthy BMI is between 19-25. To calculate Your BMI, you may use a Standard BMI Calculator on the NIH BMI w ebsite: <www.nhlbi.nih.gov/guidelines/obesity/BMI/bmicalc.htm>. Weigh oneself daily. If you are overweight, set a goal to lose weight. A pound a week loss if needed is a good target. (6) Reduce Blood Sugar. Limit foods and liquids with "added sugars." (Added sugars include sucrose, fructose, glucose, maltose, dextrose, high fructose corn syrup, corn syrup, concentrated fruit juice and honey). (7) Stop Smoking. If you smoke, quitting smoking is one of the best things that you can do for your health. Smoking increases your risk of heart attack, stroke, and peripheral vascular disease, which is a build-up of plaque in your arteries. Please discard all the cigarettes and lighters in your house. Have a plan for what you will do when you have the urge to smoke. Direct and second- hand smoke shortens your life as well as the lives of your family, friends and others around you. For your health and the health of those around you, please consider quitting! Proper Bending Body Mechanics: Maintain a wide stance with one foot slightly in front of the other. Keep your back straight. Bend utilizing the strength in your hips and knees. Do not bend at the waist. Maintain the lifted object at your waist-level close to your body. Avoid lifting weight that causes immediately pain or pain anywhere in the body afterwards. Smoking/Nicotine If there was ever one thing that you could do to increase your overall health, decrease your risk of cardiovascular problems by about 39% the second you make the choice, it is to STOP SMOKING. Your body's most instant gratification is the second you stop smoking. We have all heard the studies, read the articles but it is true, smoking is extremely bad for your overall health, and moreover it is detrimental to your bone health. Nicotine, IN ANY FORM, kills bone cells, prevents your body from healing fractures, and significantly prolongs healing after surgery. In spine surgery specifically, it increases your risk of not healing your bones to create a fusion and increases your risk of having a revision surgery due to this up to 60%. I know it is hard. I know it feels impossible. But there are ways. Take control of your life. We are here to help you through it. And when you are ready, ask us and we can direct you to help if you desire. Use the START Plan to Quit Smoking (please visit the Helpguide.org website listed below for more information): S = Set a quit date. Choose a date within the next 2 weeks, so you have enough time to prepare without losing your motivation to quit. If you mainly smoke at work, quit on the weekend, so you have a few days to adjust to the change. T = Tell family, friends, and co-workers that you plan to quit. Let your friends and family in on your plan to quit smoking and tell them you need their support and encouragement to stop. Look for a quit janis who wants to stop smoking as well. You can help each other get through the rough times. A = Anticipate and plan for the challenges you'll face while quitting. Most people who begin smoking again do so within the first 3 months. You can help yourself make it through by preparing ahead for common challenges, such as nicotine withdrawal and cigarette cravings. R = Remove cigarettes and other tobacco products from your home, car, and work. Throw away all your cigarettes (no emergency pack!), lighters, ashtrays, and matches. Wash your clothes and freshen up anything that smells like smoke. Shampoo your car, clean your drapes and carpet, and steam your furniture. T = Talk to your doctor about getting help to quit. Your doctor can prescribe medication to help with withdrawal and suggest other alternatives. If you can't see a doctor, you can get many products over the counter at your local pharmacy or grocery store, including the nicotine patch, nicotine lozenges, and nicotine gum. Resources for Quitting Smoking: <https://www.[place].gov/documents/[facility]/Quit_Tobacco_Resources_for_patients_313 480_7.pdf> Supplementation: Take recommended dosages of Vitamin D and Calcium to help fortify your bones and help them to heal. See your health maintenance packet for dosages and recommended levels. DVT/VTE prophylaxis: You will be given compression stockings from the hospital. Wear these daily for the first two weeks after surgery. You may take them off at night. You may be prescribed a medication to help thin your blood. Take this as directed. If you are not prescribed this medication, early and frequent ambulation has been shown to be the best prophylaxis to deep vein thrombosis and sequelae related to this event. Assessment: 1. L4-L5 spondylosis 2.L4-L5 bilateral foraminal stenosis 3. L4-L5 central stenosis 4. L5-S1 disc bulge Procedures: L4-L5 MIS TLIF Patient Condition at Discharge: Good Plan - Discharge Summary Discharge Rx Participant: Yes New Discharge Prescriptions: New HYDROcodone/APAP 7.5-325MG [Tsaile 7.5] 1 each PO Q6HR PRN #28 tab PRN Reason: Pain Docusate [Colace] 100 mg PO DAILY #30 capsule Cyclobenzaprine [Flexeril] 5 mg PO BID #20 tablet Gabapentin 300 mg PO BID #28 cap No Action LORazepam [Ativan] 1 mg PO BID Cholecalciferol [Vitamin D3 (25 Mcg = 1000 Iu)] 25 mcg PO DAILY lamoTRIgine [LaMICtal] 200 mg PO DAILY Loratadine [Claritin] 10 mg PO DAILY Cefuroxime [Ceftin] 250 mg PO BID PRN PRN Reason: Acne Psyllium Husk (with Sugar) [Metamucil Fiber Thin] 4 gm PO DAILY lisinopriL [Zestril] 10 mg PO DAILY LORazepam [Ativan] 2 mg PO HS Finasteride [Proscar] 5 mg PO DAILY Tamsulosin [Flomax] 0.4 mg PO DAILY Omeprazole [PriLOSEC] 40 mg PO DAILY DULoxetine HCL [Cymbalta] 60 mg PO BID Gabapentin [Neurontin] 300 mg PO BID [place]-3/Dha/Epa/Fish Oil [Fish Oil 1,000 mg Softgel] 1 each PO DAILY Discharge Medication List Cefuroxime [Ceftin] 250 mg PO BID PRN 06/08/21 [History] Cholecalciferol [Vitamin D3 (25 Mcg = 1000 Iu)] 25 mcg PO DAILY 06/08/21 [History] DULoxetine HCL [Cymbalta] 60 mg PO BID 06/08/21 [History] Finasteride [Proscar] 5 mg PO DAILY 06/08/21 [History] Gabapentin [Neurontin] 300 mg PO BID 06/08/21 [History] LORazepam [Ativan] 1 mg PO BID 06/08/21 [History] LORazepam [Ativan] 2 mg PO HS 06/08/21 [History] Loratadine [Claritin] 10 mg PO DAILY 06/08/21 [History] [place]-3/Dha/Epa/Fish Oil [Fish Oil 1,000 mg Softgel] 1 each PO DAILY 06/08/21 [History] Omeprazole [PriLOSEC] 40 mg PO DAILY 06/08/21 [History] Psyllium Husk (with Sugar) [Metamucil Fiber Thin] 4 gm PO DAILY 06/08/21 [History] Tamsulosin [Flomax] 0.4 mg PO DAILY 06/08/21 [History] lamoTRIgine [LaMICtal] 200 mg PO DAILY 06/08/21 [History] lisinopriL [Zestril] 10 mg PO DAILY 06/08/21 [History] Cyclobenzaprine [Flexeril] 5 mg PO BID #20 tablet 06/14/21 [Rx] Docusate [Colace] 100 mg PO DAILY #30 capsule 06/14/21 [Rx] Gabapentin 300 mg PO BID #28 cap 06/14/21 [Rx] HYDROcodone/APAP 7.5-325MG [Tsaile 7.5] 1 each PO Q6HR PRN #28 tab 06/14/21 [Rx] Follow up Appointment(s)/Referral(s): [facility], [NON-STAFF] - 1-2 Days Nikolai Marvin DO [Doctor of Osteopathic Medicine] - 2 Weeks Activity/Diet/Wound Care/Special Instructions: Spine Discharge and Recovery Instructions Date of Surgery: 06/11/2021 Diagnosis: L4-L5 spinal; L4-L5 bilateral foraminotomy foraminal stenosis; L4-L5 central stenosis; L5-S1 disc bulge Procedure: L4-L5 MIS TLIF Medications: See medication list All medication refills should be obtained through your primary care doctor or your clinic spine surgeon. Please discuss prescription refills at your follow up appointment. Do not call the hospital for medication refills. Dressing: Leave your dressing in place for a total of 5 days post operatively. Then you may remove your dressing and leave open to air. Keep the area clean and if not able to keep area clean, then cover with sterile gauze and tape. Showering: You may shower 3 days after your procedure allowing soap and water to run over incision. Do not scrub. Do not soak. Blot dry. Follow up: Please confirm a follow up appointment with your surgeon 3 weeks post operatively. Please make an appointment to follow up with your PCP in 1-2 weeks after surgery for evaluation 3 phase, 3-week plan POST OP WEEKS 1-3 1. Lifting/carrying/pushing/pulling limited to less than 5 pounds. 2. Do not sit for longer than 15 minutes at one time. Get up and walk around. Prolonged sitting is NOT advised. If you lay down, see if you can tolerate laying down on you front (belly side) 3. Walk for periods of 15 minutes = 1 mile but no longer; do it multiple times times each day. 4. Ice your low back after activity. POST OP WEEKS 3-6 1. Lifting limited to less than 20 pounds. 2. Do not sit for longer than 30 minutes at a time. Frequently change positions. Use a sit-to stand workstation or take frequent breaks from sitting if you have returned to work. 3. Walk for 30 minutes each day. If possible, do these three or more times a day POST OP WEEKS 6+ At your 6-week appointment we will give you a physical therapy referral to focus on a core stabilization and strengthening program. You should also work on leg & buttock strengthening, hamstring & quadriceps stretching, and continue a low impact aerobic activity program such as swimming, walking, or riding a stationary bicycle. During the initial 6 weeks after your surgery, you are at the highest risk of re-injuring your spine. You should generally avoid BLTs (bending, lifting and twisting combination motions) and follow the above guidelines to reduce the chance of reinjury. You can anticipate post op appointments in our office at approximately 3 weeks and 6 weeks after your surgery. INCISION CARE: If your incision is not draining you do NOT need to cover it with a dressing. Keep your incision clean, dry and intact. In most cases, we apply skin glue, claude or sutures to the incision at the time of surgery. This will be like a crust or have the appearance of a scab and will fall off in time on its own. The stitches or claude need to be removed at 3 weeks post op appointment. You may begin to shower 3 days after surgery (this allows the glue to pozo well). However, please avoid scrubbing the incision site or peeling off any of the skin glue. This will ensure optimal healing of your incision. Also, during this time avoid soaking the incision area in water - this includes swimming pools, hot tubs or baths. No ointments, lotions or oils on the incision until your surgeon allows. Leave claude, sutures or glue in place. Neurological dysfunction that comes on suddenly can also be a sign of a stroke. Below some common symptoms of a stroke are listed: B - balance difficulty such as sudden onset walking or leaning to one side - NEW E - eye problem such as sudden double vision or trouble seeing on one side - NEW F - Facial weakness or numbness on one side - NEW A - Arm or leg weakness or numbness on one side - NEW S - Slurred speech or difficulty with word finding - NEW T - Time is BRAIN! Call 911 as soon as you recognize these symptoms Diet: Consume a regular diet rich in vegetables and lean protein such as chicken or fish. You should consume in a ratio of approximately 20% fats|40% carbohydrates|40%protein. Vegetables, sweet potatoes, brown rice or quinoa are examples of good carbohydrates. Chips, white bread, cookies and sweets/sugar are examples of bad carbohydrates. Limit your bad carbs, go wild with good carbs. "Life's Simple 7" Guidelines as per [employer] These will help you reclaim your life after surgery and chief engineer's helper in your recovery, keeping in mind your restrictions. (1) Get Active. Physical activity can help people lose weight, control high blood pressure and cholesterol, feel emotionally better, and sleep better. (2) Control Cholesterol. Avoid a diet high in saturated fat, trans fat, & cholesterol. Limit whole milk & cream, ice cream, butter, egg yolks, processed meats (like sausage and hot dogs), and fatty meats. Choose healthy foods that are low in saturated fat, trans fat and cholesterol which include: Fruits and vegetables, fiber rich grain products (like whole grain pasta and brown rice), lean meat such as chicken, fish, nuts, seeds, and legumes. (3) Eat Better. Eat small portions. Shop at the grocery with a list and do not stray from it. Tips for a healthy diet include: Limit sodium intake to less than 1500mg daily, avoid prepackaged, processed, and fast foods, choose a diet rich in fruits, vegetables, and whole grain, high fiber foods, and limit saturated & cholesterol in your diet. (4) Manage Blood Pressure. If you have high blood pressure, you should have a cuff at home so that you can check your blood pressure regularly. Be sure you have a good cuff. An arm one is generally better than a wrist one. Bring the cuff to a doctor's appointment to validate that the measurements that your cuff are taking are accurate. Take your blood pressure twice daily when you are sitting down and relaxing. Record the numbers in a log and bring this log with you to your doctors' appointments. (5) Lose Weight if your BMI is above 25. A healthy BMI is between 19-25. To calculate Your BMI, you may use a Standard BMI Calculator on the NIH BMI website: <www.nhlbi.nih.gov/guidelines/obesity/BMI/bmicalc.htm>. Weigh oneself daily. If you are overweight, set a goal to lose weight. A pound a week loss if needed is a good target. (6) Reduce Blood Sugar. Limit foods and liquids with "added sugars." (Added sugars include sucrose, fructose, glucose, maltose, dextrose, high fructose corn syrup, corn syrup, concentrated fruit juice and honey). (7) Stop Smoking. If you smoke, quitting smoking is one of the best things that you can do for your health. Smoking increases your risk of heart attack, stroke, and peripheral vascular disease, which is a build-up of plaque in your arteries. Please discard all the cigarettes and lighters in your house. Have a plan for what you will do when you have the urge to smoke. Direct and second- hand smoke shortens your life as well as the lives of your family, friends and others around you. For your health and the health of those around you, please consider quitting! Proper Bending Body Mechanics: Maintain a wide stance with one foot slightly in front of the other. Keep your back straight. Bend utilizing the strength in your hips and knees. Do not bend at the waist. Maintain the lifted object at your waist-level close to your body. Avoid lifting weight that causes immediately pain or pain anywhere in the body afterwards. Smoking/Nicotine If there was ever one thing that you could do to increase your overall health, decrease your risk of cardiovascular problems by about 39% the second you make the choice, it is to STOP SMOKING. Your body's most instant gratification is the second you stop smoking. We have all heard the studies, read the articles but it is true, smoking is extremely bad for your overall health, and moreover it is detrimental to your bone health. Nicotine, IN ANY FORM, kills bone cells, prevents your body from healing fractures, and significantly prolongs healing after surgery. In spine surgery specifically, it increases your risk of not healing your bones to create a fusion and increases your risk of having a revision surgery due to this up to 60%. I know it is hard. I know it feels impossible. But there are ways. Take control of your life. We are here to help you through it. And when you are ready, ask us and we can direct you to help if you desire. Use the START Plan to Quit Smoking (please visit the [email or web address] website listed below for more information): S = Set a quit date. Choose a date within the next 2 weeks, so you have enough time to prepare without losing your motivation to quit. If you mainly smoke at work, quit on the weekend, so you have a few days to adjust to the change. T = Tell family, friends, and co-workers that you plan to quit. Let your friends and family in on your plan to quit smoking and tell them you need their support and encouragement to stop. Look for a quit janis who wants to stop smoking as well. You can help each other get through the rough times. A = Anticipate and plan for the challenges you'll face while quitting. Most people who begin smoking again do so within the first 3 months. You can help yourself make it through by preparing ahead for common challenges, such as nicotine withdrawal and cigarette cravings. R = Remove cigarettes and other tobacco products from your home, car, and work. Throw away all your cigarettes (no emergency pack!), lighters, ashtrays, and matches. Wash your clothes and freshen up anything that smells like smoke. Shampoo your car, clean your drapes and carpet, and steam your furniture. T = Talk to your doctor about getting help to quit. Your doctor can prescribe medication to help with withdrawal and suggest other alternatives. If you can't see a doctor, you can get many products over the counter at your local pharmacy or grocery store, including the nicotine patch, nicotine lozenges, and nicotine gum. Resources for Quitting Smoking: <https://www.[place].gov/documents/[facility]/Quit_Tobacco_Resources_for_patients_313 480_7.pdf> Supplementation: Take recommended dosages of Vitamin D and Calcium to help fortify your bones and help them to heal. See your health maintenance packet for dosages and recommended levels. DVT/VTE prophylaxis: You will be given compression stockings from the hospital. Wear these daily for the first two weeks after surgery. You may take them off at night. You may be prescribed a medication to help thin your blood. Take this as directed. If you are not prescribed this medication, early and frequent ambulation has been shown to be the best prophylaxis to deep vein thrombosis and sequelae related to this event. Discharge Disposition: HOME SELF-CARE
[2021-06-14 14:25] VITALS: BP 119/65; PULSE 113; RESP 20; TEMP 98.7
--- NOTE | 2021-06-15 17:43 | P.OP ---
Date of Procedure: 06/11/21 Preoperative Diagnosis: 1. L4-L5 spondylosis 2.L4-L5 bilateral foraminal stenosis 3. L4-L5 central stenosis 4. L5-S1 disc bulge Postoperative Diagnosis: 1. L4-L5 spondylosis 2.L4-L5 bilateral foraminal stenosis 3. L4-L5 central stenosis 4. L5-S1 disc bulge Procedure(s) Performed: 1. L4-5 transforaminal lumbar interbody fusion (89757) 2. L4-5 posterior extradural laminotomy and laminectomy for decompression of scarred neural elements (21488) 3. L4-5 posteriolateral fusion 4. Use of intraoperative Gualberto navigation for the placement of screws (80420) 5. Use of surgical microscope (79055) Implants: Globus Sable cages 7-13 8 degree long Elizabeth screws/rods Theracell bullets Arthrex alvarez osteo Indications for Procedure: This is a 71-year-old male who presented to the office and was followed by the [facility] spine clinic for his lumbar pain. The patient has had low back pain as well as lower extremity radiculopathy for some time now. Its mainly in his right lower extremity but will go back and forth between his right as left. He has tried multiple different conservative measures including physical therapy and home exercise program medications prescriptions [id number] supplementation and injections nothing is helped his symptoms at this point and so she has elected for surgical intervention. We discussed different options for the patient and he would like to proceed with L4 5 fusion. We discussed all the risks and benefits as outlined in the risk review. He is ready and willing to proceed and assume the risks of surgery. Description of Procedure: The patient was seen and examined in the preoperative area. All preoperative protocols were followed. Informed consent was obtained risks and benefits of the procedure were discussed at length. Risks including bleeding infection damage to the surrounding tissue and risk of reoperation were discussed with the patient. Risk of anesthesia up to and including was a discussed with the patient. These are outlined in the risk review. They were willing to accept these risks and all of the risks of surgery. The patient was given a weight- based dose of antibiotics in the form of 2 g Ancef. The patient was seen and evaluated by the anesthesia team who deemed them fit for surgery. The site was marked, the patient was willing to proceed with the procedure. The patient was transferred to the operative suite by the Department of anesthesia. They were then drifted off to sleep by the department anesthesia and GETA was performed. The patient tolerated this well. Randolph catheter was placed by nursing staff, atraumatically. Once confirmation of lines and ventilation the patient was transferred to a prone Marco table very carefully. All bony prominences including wrists, elbows, axilla, chest, hips, and thighs, and feet were padded very well. Special attention was paid to the genitalia and these were padded accordingly. SCDs were placed on bilateral lower extremities and were connected. Arms were well padded and placed on arm boards up and out in the 90/90 position. Once in position, again we confirmed good ventilation capabilities and that lines were running appropriately. The patient's lumbar spine was then exposed. 1010s were placed outlining the incision site. Standard alcohol was used to clean the incision site and allowed to dry. C-arm was used to biomark the patient and confirm level for incision which was marked with a skin marker. Operative briefing was performed with all teams and everyone in agreement to proceed. The patient was then prepped and draped in a normal sterile fashion. Timeout was then performed and all parties were in agreement with the procedure to be performed. After timeout we then infiltrated the superficial area with core percent Marcaine without epinephrine. Starting on the right-hand side we used the dilators to localize the L4 5 disc space and facet joints with AP and lateral fluoroscopy we then placed over the initial dilator the sequential dilators after skin incision and dissection of the fascia. Once the dilators were in place the arm was connected to the bed and the final tube was placed and locked into position we confirmed its position in AP and lateral fluoroscopy. Once in good position we performed a limited myomectomy of the facet joint and the lamina that could be visualized. Intraoperative microscope was then moved into position. Once in position we then removed the eye AP of L4 and the SAP of L5 which performed a pedicle to pedicle decompression of L4-L5 we then decompressed medially to allow for central decompression. The exiting nerve root was protected the disc space was then identified and bipolar electrocautery was used for hemostasis. We then entered the disc space using a Raptor Neri. This was confirmed to be in good position in the AP and lateral fluoroscopic imaging and to be centerline as well as anterior. We then cleaned the disc space of any remaining disc using pituitary Raptor Neri and curettes. We performed subtotal discectomy at L4-L5. Once this was performed use bear claws to scrape the endplates and to ensure that there was good endplate contact. We removed any cartilage we could see we irrigated the disc space out and removed any excess disc from the area. We then placed anterior to the cage thirst L bullets we then impacted the cage into place taking care to protect the exiting nerve root and the dura medially. Once the cages in position and confirmed under AP and lateral fluoroscopy and the cages then expanded. Good expansion was seen and good height worship as well as lordosis was obtained. We then back filled the cage with DBM bio 4 and autograft. Once this was accomplished the extension agent was removed. Visualized the cages in good position and was stable. The exiting nerve root was visualized and was completely decompressed as well as intact. Dura was intact medially. We then irrigated the area place FloSeal for hemostasis. The tube retractor was then carefully removed under direct visualization. We then proceeded with screw placement we compost this using CareXtend 3-D navigation. The spine mask was placed and then secured using Ioband C drape was placed in a 3-D C-arm spent was obtained. We then removed the drapes and proceeded with Jamshidi placement Jamshidi was advanced to the L4 pedicles bilaterally and then replaced with wires. We then advanced into L5 pedicles bilaterally using 3 navigation and then wires were placed. C-arm was then placed in the lateral position and set fluoroscopic images were taken while screws were advanced into L4 bilaterally over the wires. Wires were removed once screws were at the back of the vertebral bodies. Once screws in position we then tested them using intraoperative neuro monitoring and all screws tested above 20 mA. We then removed wires and we measured and placed a diana. The diana was then secured at L5 with set screws. We then sequentially reduced L4 to L5. This is done under lateral fluoroscopy. Then final tightened setscrews. We roughen the edges of the TP and the lateral aspect of the facet joints with a high-speed bur and placed bone graft in the posterior lateral area. We then thoroughly irrigated the wounds. The tabs were then broken off and final AP and lateral imaging was taken showing good hardware placement good cage placement good reduction and worship of height. Wounds were copiously irrigated with normal sterile saline. We then closed the fascia with #1 Vicryl in simple fashion the deep subcu tissues closed with 0 Vicryl in a simple fashion superficial subcu tissue closed with 2-0 Vicryl and skin was closed with claude the wound edges approximated very well. The wounds were then cleaned and dressed with sterile op to foam dressings. The patient was transferred back to their hospital bed atraumatically. . Patient was then awakened and extubated by the department of anesthesia having tolerated the procedure very well with no complications. They were transferred to the postoperative care unit in stable condition.
== END 2021-06-14 15:49 | disposition home or self-care (01) | DRG 455 ==
LOC: OR 11:11 → 1SOBS 17:07 → OR 06-12 17:15 → 1SOBS 06-12 17:21
PROVIDERS: ADMIT Orthopaedic Surgery; ATTEND Orthopaedic Surgery
PROC: 0SG00K1 Fusion of Lumbar Vertebral Joint with Nonautologous Tissue Substitute, Posterior Approach, Posterior Column, Open Approach (ICD-10-PCS; principal; 2021-06-11 12:30)
PROC: 0ST20ZZ Resection of Lumbar Vertebral Disc, Open Approach (ICD-10-PCS; principal; 2021-06-11 12:30)
PROC: 0SG00AJ Fusion of Lumbar Vertebral Joint with Interbody Fusion Device, Posterior Approach, Anterior Column, Open Approach (ICD-10-PCS; principal; 2021-06-11 12:30)
DX: M47.816 Spondylosis without myelopathy or radiculopathy, lumbar region (principal); M48.061 Spinal stenosis, lumbar region without neurogenic claudication; M51.27 Other intervertebral disc displacement, lumbosacral region; M43.16 Spondylolisthesis, lumbar region; M47.26 Other spondylosis with radiculopathy, lumbar region; I10 Essential (primary) hypertension; K21.9 Gastro-esophageal reflux disease without esophagitis; M19.90 Unspecified osteoarthritis, unspecified site; N40.1 Benign prostatic hyperplasia with lower urinary tract symptoms; Z20.822 Contact with and (suspected) exposure to COVID-19; R29.6 Repeated falls; G89.29 Other chronic pain; Z85.828 Personal history of other malignant neoplasm of skin; Z87.442 Personal history of urinary calculi; Z87.891 Personal history of nicotine dependence; Z91.81 History of falling; Z79.899 Other long term (current) drug therapy
CPT/HCPCS: 72100; 72131; 80202; 82565; 85025; 86850; 86900; 86901; 87070; 87635

== ENCOUNTER → 2022-11-07 | Outpatient (CLI) | payer MEDICARE | END | disposition home or self-care (01) | LOC: LABPAT 11:08 | PROVIDERS: ATTEND Orthopaedic Surgery | DX: Z01.812 Encounter for preprocedural laboratory examination (principal); Z22.322 Carrier or suspected carrier of Methicillin resistant Staphylococcus aureus | CPT/HCPCS: 87070 ==

== ENCOUNTER → 2022-11-14 | Day surgery (SDC) | payer MEDICARE ==
[2022-11-08 17:02] VITALS: BMI 27.1
--- NOTE | 2022-11-13 12:57 | P.HPOR ---
History of Present Illness H&P Date: 10/12/22 .D:Date: 10/12/22 : 01:31pm .T:Title: [facility] Date of :50 R14 Allergies: Age: 72 year Height: 5'11" Weight: 190 lbs BMI: 26.50 kg/m2 Occupation: Retired VAS: 6 CHIEF COMPLAINT: Recheck post surgery L4-5 TLIF and lumbar pain Results from CT myelogram DOS:06/11/21 Post Op Week: 1 year 4 months HISTORY: Mr. Chan returns to the office for a recheck of their L4-5 TLIF and the results of their CT myelogram. Patient reports a lumbar pain. In addition to their lumbar pain, they do report that it radiates into the groin while driving. Overall the patient has seen a progressive decrease in symptoms since their onset. Mr. Chan symptoms are exacerbated with driving and prolonged sitting and standing. Patient is having no sleep disturbances as well. Patient indicates no changes since last visit. Patient denies trialing any other modalities at this time. For their symptoms, the patient has been taking Gabapentin. Otherwise the patient denies any f/c/sob/cp, no incision concerns, no bladder or bowel retention/incontinence, no perineal numbness/tingling, and ambulates independently. The patient's past medical history; past surgical history; family history; medicines; allergies and social history have been reviewed and are as stated elsewhere in the chart. 16 points review of systems completed and as stated in HPI, all other systems reviewed are negative. PHYSICAL EXAM: -Patient is alert and oriented 3 appears well-nourished well-hydrated is in no acute distress. They do not appear septic. -On exam the patient has no tenderness to palpation of their thoracic or lumbar spine. There is no edema or ballottement sign. -Upper extremities show 5/5 strength in all major muscle groups. -Lower extremities with 5 out of 5 strength in all major muscle groups -There is FROM that is painless of the b/l UE and LE in all major joints. -They are intact to light touch sensation in L2 to S1 nerve distribution as well as the C5-T1 distribution. -DTRs 2/4 all upper and lower -Patient has palpable distal pulses in all four extremeties -Compartments are soft and compressible. -Neg Anand's -No Clonus -Neg Babinski -Neg Seema's -No tensioning signs. -Cranial nerves II through XII are grossly intact. -Overall alignment is well-maintained in the sagittal coronal planes RADIOGR APHS: CT Myelogram from 09/27/2022 of Lumbar Spine: No significant stenosis noted. Hardware in place L4-5. Mild foraminal stenosis noted. L4 crews in position. L5 screw slightly medial could be causing issues. Grade I-II medial however and not significant. Cage in plcae no issues noted. No fractures. No lesions otherwise. ASSESSMENT: 1. Irritable hardware right L4-5 2. Right lower extremity radiculopathy PLAN: All options were reviewed today, we decided the best course of action would be: I discussed treatment options with the patient, including operative and non- operative options, and they have elected to proceed with the following surgical procedure: Removal irritable screws right L4-5 The indications, risks, benefits, and alternatives to surgery were discussed with the patient and family at length. Specifically (but not limited to) the risks of infection, stiffness, recurrence of symptoms, need for revision surgery, local numbness, neurovascular injury, and blood clots were discussed. The patient's questions were answered. The decision to proceed was made. Consent will be obtained for the procedure. -Ambulate daily -Take pain medications and post op medications as needed and as directed -Ice and rest for pain and swelling control. Spine Surgery Risk Review and Indications Mr. Chan is presenting for evaluation of Low back pain. It was my pleasure to have seen and examined Mr. Chan. In our visit today we have had a chance to go over subjective complaints, physical examination findings and treatments including the natural course history without intervention and various interventional options. The patients imaging demonstrates: CT Myelogram from 09/27/2022 of Lumbar Spine: No significant stenosis noted. Hardware in place L4-5. Mild foraminal stenosis noted. L4 crews in position. L5 screw slightly medial could be causing issues. Grade I-II medial however and not significant. Cage in plcae no issues noted. No fractures. No lesions otherwise. On physical exam, Mr. Chan demonstrates: Patient reports a lumbar pain. In addition to their lumbar pain, they do report that it radiates into the groin while driving. Overall the patient has seen a progressive decrease in symptoms since their onset. Mr. Chan symptoms are exacerbated with driving and prolonged sitting and standing. Patient is having no sleep disturbances as well. I have explained to the patient that as their condition progresses it will cause further neurological deficits and eventual paralysis. Based on the patients imaging, physical exam, and the rapid progression and disabling nature of their symptoms, at this time I recommend surgery in the form of a: Removal irritable screws right L4-5. I discussed the risk and benefits of this procedure at length with Mr. Chan. The patientDaughter agreed to considered pursuing the procedure a bovementioned. Prior to surgery, she should follow up with her PCP (Cardio, ID, IM etc) for clearance. Questions were invited and answered, and the patient wishes to proceed as outlined below. Currently, I am recommendin. Removal irritable hardware right L4-5 2.Follow up with PCP for surgical clearance 3.Review of surgical risks and benefits as well as an educational packet on the proposed surgical procedure. Risks: All surgical procedures come with inherent risks, including those related to positioning, anesthesia, intraoperative findings, and postoperative complications. It is important to understand that surgery does not come with any guarantee of a successful outcome as complications and adverse events are always possible. The patient was given a handout in office today discussing the surgical procedure and risks associated with the intervention, both of which were discussed with the patient. These risks include but are not limited to the following: * Experiencing same, different or even worse symptoms in back, neck, arms, or legs compared to before surgery. Requiring further surgery or other forms of treatment presently or at some time in the future at same or other levels of the intended spine surgery. On an extreme but fortunately relatively rare basis severe complication such as blindness, stroke, heart attack, temporary and/or permanent nerve injury, paralysis, coma, or may occur, sometimes without known explanation. Surgical complications may include but are not limited to risk of infection, fluid accumulation in the surgical dissection site, including a seroma or hematoma, that requires additional surgery, wound drainage, bleeding, new numbness or weakness, vision changes/loss, spinal fluid leakage, non-healing and/or infected incision, headaches, difficulty or inability to swallow, hoarseness, hemopneumothorax, pneumothorax, impotence, retrograde ejaculation, vaginal dryness; injury to nerves, spinal cord, blood vessels, lymphatics or other vital organs (i.e., bowel injury, injury to the great vessels); heterotopic bone formation; complications related to the hardware such as screws, rods, cages including misplaced hardware, device failure, instrumentation at the wrong spine level, hardware fracture/breakage, or hardware loosening; vertebral failure of the spinal column above or below the newly placed hardware; retained surgical instrumentations or devices and the need for further surgery. * Medical risks of the planned spine surgery include but are not limited to generalized Infections to the whole body or local areas outside of the surgical site (sepsis), heart attack, bleeding, anaphylaxis, meningitis, seizure, epilepsy, hearing loss, burn moyer, laceration of the head or other areas of the body, bruising, hypersensitivity of the skin, bladder over distension; allergic reaction; shoulder injury related to positioning; fat, blood and air clots to other areas of the body like heart, lungs, brain; failure of internal organs such as lungs, kidneys, liver and excessive bleeding. If blood transfusions are necessary, note that transfusions may cause intolerance reactions such as anaphylaxis or other complex reactions. Despite best efforts, the results of spine surgery might not heal in terms of bone, soft tissues such as skin, fascia, ligaments, and joints. Additionally, in order to achieve best possible results, spine surgery may be carried out beyond the initially planned levels and involve decompression, fusion including insertion of hardware at levels other than the original intended area of surgical interest change some portions of the procedure in order to ensure the best possible outcomes. With spine surgery and spinal fusion, there are different off label uses of instrumentation (devices, implants and hardware) as well as biological substances (bone morphogenic proteins, demineralized bone matrix) as well as using extra bone from allograft sources (i.e. cadaver bone) or autograft (iliac crest bone, ribs, or the spine itself). The patient has been given information about these practices and their inherent risks and benefits. [facility] is an educational center that serves as a training facility for neurosurgical and orthopedic FINAL OPERATIONS TECHNICIAN and Nursing students. Physician assistants are medically trained surgical providers who function in the outpatient, inpatient, and operating room setting under the direct supervision of the attending surgeon. [facility] has multiple operating rooms with single and overlapping rooms running daily. They currently function under the required guidelines as produced by the [facility] Finance Committee with regards to the overlapping rooms and will continue to comply with changes to this policy as they occur. The requirements include and are complied with as follows: (1) the critical portions of the overlapping rooms will not occur at the same time, (2) the attending physician will be physically present during the critical portions of the procedure and immediately available during the entire case, and (3) a back-up attending is designated should the primary attending not be immediately available. The patient has had a chance to review all the listed information, has been given print outs detailing this information, and has had all his/her questions answered to their satisfaction. It was my pleasure to have seen and examined Mr. Chan. In our visit today we have had a chance to go over my understanding of our patient's current condition, the natural course history without intervention and various interventional options. Questions were invited and answered, and the patient wishes to proceed as outlined above. I have seen and examined the patient for 25 minutes and we have spent more than 50% of the time in repeat and detailed counseling about the patient's condition, its natural course history with out and as much as can be predicted with surgery and re-review of various surgical treatment options. In conclusion, Mr. Chan and daughter requested we proceed with the above suggested surgery and are willing to accept risks and limitations of the suggested surgery as nature of the disease process and our best attempts at treatment for the condition. Thank you again for allowing us to be part of your patient's care. Please don't hesitate to contact me if you have any further questions. Follow- up: Post procedure Patient Education: (Informational booklet, instructions, etc) given at today's appointment: Yes .ED:Patient Education: Y Medications Reviewed: YES Attestation: In our visit today Mr. Chan and I have had a chance to go over my understanding of the patient's current condition, the natural course history without intervention and various interventional options. Questions were invited and answered, and the patient wishes to proceed as outlined above. I will be sure to keep you updated afterMr. Chan returns here for further follow-up. Thank you again for your referral. Please do not hesitate to contact me if you have any further questions. Signed and authenticated by: Nikolai [facility] Minimally Invasive Spine Surgery [facility] [place] [address] [address] This message is confidential, intended only for the named recipient(s) and may contain information that is privileged or exempt from disclosure under applicable law. If you are not the intended recipient(s), you are notified that the dissemination, distribution or copying of this information is strictly prohibited. If you received this message in error, please notify the sender then delete this message. Patient verbalizes understanding of the information discussed. The above note was initiated by Roseanna Parkinson, physician recording executive assistant for Dr. Nikolai Marvin. This note has been reviewed by Dr. Marvin, who has made his personal changes and impressions for this document. CC: Jesika Peters, DO # SIGNED BY Nikolai Marvin (GOO)10/19/2022 07:29PM Past Medical History Past Medical History: Cancer, GERD/Reflux, Hearing Disorder / Deafness, H ypertension, Musculoskeletal Disorder, Osteoarthritis (OA), Prostate Disorder Additional Past Medical History / Comment(s): Hx skin cancer, kidney stones. Hard of hearing. States told by Cariologist per EKG there are signshe has hx of a heart attack, but unknown when. History of Any Multi-Drug Resistant Organisms: None Reported Past Surgical History: Back Surgery, Cholecystectomy, Orthopedic Surgery Additional Past Surgical History / Comment(s): ORIF right wrist, hemorrhoidectomy, bilateral cataracts removed, L4-L5 decompression/fusion with hardware. Past Anesthesia/Blood Transfusion Reactions: Motion Sickness, Postoperative Nausea & Vomiting (PONV) Additional Past Anesthesia/Blood Transfusion Reaction / Comment(s): Severe PONV, had trouble urinating after one surgery. Past Psychological History: Anxiety, Depression Smoking Status: Former smoker Past Alcohol Use History: None Reported Additional Past Alcohol Use History / Comment(s): Quit smoking 40 yrs ago, didn't smoke very long and only smoked occasionally. Past Drug Use History: None Reported - Past Family History Mother Family Medical History: No Reported History Sister(s) Family Medical History: Cancer, Deep Vein Thrombosis (DVT) Brother(s) Family Medical History: Cancer Additional Family Medical History / Comment(s): Kidney cancer. Medications and Allergies Home Medications Medication Instructions Recorded Confirmed Type Cefuroxime [Ceftin] 250 mg PO Q48H PRN 06/08/21 11/08/22 History Cholecalciferol [Vitamin D3 (25 25 mcg PO DAILY 06/08/21 11/08/22 History Mcg = 1000 Iu)] DULoxetine HCL [Cymbalta] 60 mg PO BID 06/08/21 11/08/22 History Finasteride [Proscar] 5 mg PO DAILY 06/08/21 11/08/22 History Gabapentin [Neurontin] 300 mg PO TID 06/08/21 11/08/22 History LORazepam [Ativan] 1 mg PO BID 06/08/21 11/08/22 History LORazepam [Ativan] 2 mg PO HS 06/08/21 11/08/22 History Loratadine [Claritin] 10 mg PO DAILY 06/08/21 11/08/22 History [place]-3/Dha/Epa/Fish Oil [Fish Oil 1 each PO DAILY 06/08/21 11/08/22 History 1,000 mg Softgel] Omeprazole [PriLOSEC] 40 mg PO QAM 06/08/21 11/08/22 History Tamsulosin [Flomax] 0.4 mg PO DAILY 06/08/21 11/08/22 History lamoTRIgine [LaMICtal] 200 mg PO QAM 06/08/21 11/08/22 History lisinopriL [Zestril] 10 mg PO QAM 06/08/21 11/08/22 History buPROPion HCL [buPROPion HCL Xl] 150 mg PO QAM 11/08/22 11/08/22 History Allergies Allergy/AdvReac Type Severity Reaction Status Date / Time erythromycin base Allergy Nausea & Verified 11/08/22 16:38 Vomiting cefazolin AdvReac Nausea & Verified 11/08/22 16:38 Vomiting muscle relaxer AdvReac Unknown Uncoded 11/08/22 16:38 Physical Examination Osteopathic Statement: *. No significant issues noted on an osteopathic structural exam other than those noted in the History and Physical/Consult.
[~2022-11-14] MED LIST changes: +ACETAMINOPHEN TAB 325 MG TAB PO SCH; +BUPIVACAIN-EPI 0.25%-1:200,000 30 ML VIAL SQ ONE; +CYCLOBENZAPRINE 5 MG TAB PO PRN; +DEXAMETHASONE SOD PHOSPHATE 4 MG/ML 1 ML VIAL IV ONE; +GABAPENTIN 300 MG CAP PO PRN; +GELATIN SPONGE,ABSORB (LARGE) 1 EACH SPONGE TOPICAL ONE; +GLYCOPYRROLATE 0.2 MG/ML 2 ML VIAL ONE; +HYDROcodone/APAP 10-325MG 1 EACH TAB PO PRN; +HYDROcodone/APAP 5-325MG 1 EACH TAB PO PRN; +HYDROmorphone (PF) 1 MG/ML ONE; +HYDROmorphone 0.5 MG/0.5 ML SYRINGE IVP PRN; +HYDROmorphone 1 MG/ML 1 ML SYRINGE IVP PRN; +IV FLUID CONTINUATION 1,000 ML IV ONE; +KETOROLAC 15 MG/ML 1 ML VIAL ONE; +LABETALOL SYRINGE 5 MG/ML IVP ONE; +LACTATED RINGERS 1,000 ML IV ONE; +LACTATED RINGERS 1,000 ML IV SCH; +LIDOCAINE 2% INJ 20 MG/ML (2 ML VIAL) ONE; +MAGNESIUM HYDROXIDE 2,400 MG/10 ML CUP PO PRN; -MELOXICAM 7.5 MG TAB PO PRN; -MIDAZOLAM 2 MG/2 ML VIAL IV PRN; +MIDAZOLAM 2 MG/2 ML VIAL ONE; +NEOSTIGMINE 1 MG/ML 10 ML VIAL ONE; +ONDANSETRON 4 MG/2 ML VIAL IVP ONE; +PROPOFOL 10 MG/ML 20 ML VIAL IV ONE; +ROCURONIUM 10 MG/ML (5 ML VIAL) IV ONE; +SENNOSIDES-DOCUSATE SODIUM 1 EACH TAB PO PRN; +THROMBIN (BOVINE) 5,000 UNIT VIAL TOPICAL ONE; +TRANEXAMIC 1,000 MG/100ML-NACL 1,000 MG in SALINE 1 100ML.BAG IVPB PRN; -TRANEXAMIC ACID 1,000 MG in SODIUM CHLORIDE 0.9% 100 ML IVPB PRN; +VANCOMYCIN 1,500 MG in SODIUM CHLORIDE 0.9% 500 ML 500 ML IVPB ONE; +VANCOMYCIN IV PER PHARMACY 1 EACH MISC MISCELLANE PRN; +ceFAZolin 3,000 MG in SODIUM CHLORIDE 0.9% IRRIGATIO 3,000 ML IRRIGATION ONE; +fentaNYL (PF) 50 MCG/ML 2 ML AMP ONE
--- NOTE | 2022-11-14 13:01 | FL ---
EXAMINATION TYPE: FL guidance operating room, XR lumbar spine 2 or 3V DATE OF EXAM: 11/14/2022 FLUOROSCOPY Fluoroscopy time of 41 seconds was used during posterior lumbar fusion. 15 image/s document/s the pr ocedure. Total DAP: 11.749 Gycm2.
[2022-11-14] MEDS: VANCOMYCIN 1,000 MG VIAL MISCELLANE ONE ×2 (13:31→13:54)
--- NOTE | 2022-11-14 14:08 | P.OP ---
Date of Procedure: 11/14/22 Preoperative Diagnosis: 1. Irritable hardware Right L4-5 2. RLE radiculopathy Postoperative Diagnosis: 1. Irritable hardware Right L4-5 2. RLE radiculopathy Procedure(s) Performed: 1. Incision and drainage right lower back 7x5x8 cm using skin knife and bovi 2. Removal of hardware L4-5 right (73968) 3. Revision Posteriolateral fusion L4-5 ([id number]) Implants: Removal of Gualberto Braxton screws Anesthesia: GETA Surgeon: Nikolai Marvin Community Development Specialist #1: Ken Weir (Was present and assisted with all aspects of the case from positioning to dressing placement) Estimated Blood Loss (ml): 5 IV fluids (ml): 200 Urine output (ml): 0 Pathology: none sent Condition: stable Disposition: PACU Indications for Procedure: Mr. Chan is presenting for evaluation of Low back pain. It was my pleasure to have seen and examined Mr. Chan. In our visit today we have had a chance to go over subjective complaints, physical examination findings and treatments including the natural course history without intervention and various interventional options. The patients imaging demonstrates: CT Myelogram from 09/27/2022 of Lumbar Spine: No significant stenosis noted. Hardware in place L4-5. Mild foraminal stenosis noted. L4 crews in position. L5 screw slightly medial could be causing issues. Grade I-II medial however and not significant. Cage in plcae no issues noted. No fractures. No lesions otherwise. On physical exam, Mr. Chan demonstrates: Patient reports a lumbar pain. In addition to their lumbar pain, they do report that it radiates into the groin while driving. Overall the patient has seen a progressive decrease in symptoms since their onset. Mr. Chan symptoms are exacerbated with driving and prolonged sitting and standing. Patient is having no sleep disturbances as well. I have explained to the patient that as their condition progresses it will cause further neurological deficits and eventual paralysis. Based on the patients imaging, physical exam, and the rapid progression and disabling nature of their symptoms, at this time I recommend surgery in the form of a: Removal irritable screws right L4-5. I discussed the risk and benefits of this procedure at length with Mr. Chan. The patientDaughter agreed to considered pursuing the procedure abovementioned. Prior to surgery, she should follow up with her PCP (Cardio, ID, IM etc) for clearance. Questions were invited and answered, and the patient wishes to proceed as outlined below. Currently, I am recommendin. Removal irritable hardware right L4-5 Description of Procedure: The patient was seen and examined in the preoperative area. All preoperative protocols were followed. Informed consent was obtained risks and benefits of the procedure were discussed at length. Risks including bleeding infection damage to the surrounding tissue and risk of reoperation were discussed with the patient. Risk of anesthesia up to and including was a discussed with the patient. These are outlined in the risk review. They were willing to accept these risks and all of the risks of surgery. The patient was given a weight- based dose of antibiotics in the form of weight-based dose vancomycin. The patient was seen and evaluated by the anesthesia team who deemed them fit for surgery. The site was marked, the patient was willing to proceed with the pro cedure. The patient was transferred to the operative suite by the Department of anesthesia. They were then drifted off to sleep by the department anesthesia and [anesthesia type] was performed. The patient tolerated this well. [Randolph catheter was placed by nursing staff, atraumatically]. Once confirmation of lines and ventilation the patient was transferred to a [prone Marco table very carefully]. All bony prominences including wrists, elbows, axilla, chest, hips, and thighs, and feet were padded very well. Special attention was paid to the genitalia and these were padded accordingly. SCDs were placed on bilateral lower extremities and were connected. Arms were well padded and placed [on arm boards up and out in the 90/90 position]. Once in position, again we confirmed good ventilation capabilities and that lines were running appropriately. The patient's lumbar spine was then exposed. 1010s were placed outlining the incision site. Standard alcohol was used to clean the incision site and allowed to dry. C-arm was used to biomark the patient and confirm level for incision which was marked with a skin marker. Operative briefing was performed with all teams and everyone in agreement to proceed. The patient was then prepped and draped in a normal sterile fashion. Timeout was then performed and all parties were in agreement with the procedure to be performed. 30 cc 0.25% marcaine w/epi was injected around site. Incision was made over the previously marked. Dissection taken down to the hardware on the right-hand side was identified and cleaned. Once it was exposed and retractors were placed. The hardware is removed first with set screws and then the diana. The screw and removed. There is no excess bleeding or other drainage from the area. The screw passages were filled with Gelfoam. The area was then cleaned and any debris removed from around the screws. The bone was identified and decorticated. Irrigation was done of the area with 3L of Ancef irrigant. MagnaOs was placed in the posterior lateral gutters for reinforcement of posteriolateral fusion. The wound was then closed in a layered fashion first in facia with #1 PDS followed by 0 Vicryl in the deep subq, 2-0 Vicryl in the superficial subq and claude in the skin. Edges approximated very well. Wound was then cleaned and dressed with optifoam dressing. The patient was transferred back to their hospital bed atraumatically. Patient was then awakened and extubated by the department of anesthesia having tolerated the procedure very well with no complications. They were transferred to the postoperative care unit in stable condition.
[2022-11-14 14:11] VITALS: TEMP 97
[2022-11-14 15:19] VITALS: RESP 20
[2022-11-14 15:47] VITALS: BP 138/79; PULSE 101
--- NOTE | 2022-11-14 22:27 | XR ---
EXAMINATION TYPE: XR lumbar spine 2 or 3V, FL guidance operating room DATE OF EXAM: 11/14/2022 Comparison: None Clinical History: 72-year-old male [id number] IRRITATING HARDWARE Findings: Intraoperative fluoroscopy showing L4-L5 posterior and interbody fusion on one side. FLUOROSCOPY Fluoroscopy time of 1 seconds was used during assessment of lumbar fusion hardware. 2 image/s docume nt/s the procedure. DOSE AREA PRODUCT (DAP) UGY*M,MGY*CM: 0.621Deog2 Impression: Intraoperative fluoroscopy as above.
== END ==
LOC: OR 07:30 → 2ORMAIN 08:55 → OR 17:06
PROVIDERS: ATTEND Orthopaedic Surgery
DX: T84.89XA Other specified complication of internal orthopedic prosthetic devices, implants and grafts, initial encounter (principal); Y82.8 Other medical devices associated with adverse incidents; I10 Essential (primary) hypertension; E78.5 Hyperlipidemia, unspecified; Z87.891 Personal history of nicotine dependence; F41.9 Anxiety disorder, unspecified; F32.A Depression, unspecified; K21.9 Gastro-esophageal reflux disease without esophagitis; H91.90 Unspecified hearing loss, unspecified ear; M19.90 Unspecified osteoarthritis, unspecified site; Z85.828 Personal history of other malignant neoplasm of skin; Z87.442 Personal history of urinary calculi; Z98.1 Arthrodesis status; Z79.899 Other long term (current) drug therapy; Z79.1 Long term (current) use of non-steroidal anti-inflammatories (NSAID); Z88.1 Allergy status to other antibiotic agents
CPT/HCPCS: 22612; 22852; 72100; C1713; J2250; J3370; J1100; J2710; J0690 ×2; J2405; J3010; J1170; J1885; J2704; J2001; 86850; 86900; 86901